=== PATIENT | female | born 1955 | race Caucasian/White ===

== ENCOUNTER 2016-06-30 13:08 | Inpatient (IN) ==
[2016-06-30] MEDS ORDERED: HYDROmorphone 2 MG/1 ML VIAL IV STA ×2 (14:17→20:00)
[2016-06-30] MEDS ORDERED: SODIUM CHLORIDE 0.9% 2,000 ML IV STA (14:17)
[2016-06-30] MEDS ORDERED: ONDANSETRON 4 MG/2 ML VIAL IV STA (14:17)
--- NOTE | 2016-06-30 14:25 | Emergency Department Note ---
Nixon Gupta Gwan, am scribing for, and in the presence of, Charles Franco MD 14:22 . Joan Gupta James D, MD, personally performed the services described in this documentation, ascribed by Elizabeth Alicea in my presence, and it is both accurate and complete 424 . Arrival - Arrival ED Nursing Triage Note: Pt c/o abd pain with right sided pain under her ribs that radiates through to her back x 2 wks. With nausea, urinary frequency, and dark colored urine. Mode of Arrival: Ambulatory Limitations: No Limitations Source: Patient, Old Records Reviewed, RN Notes Reviewed - History of Present Illness Onset (ago): week(s) Consistency: constant Severity: moderate <Charles Franco - Last Filed: 06/30/16 15:36> <Jas Michaud - Last Filed: 06/30/16 17:13> - Arrival Chief Complaint: Abdominal / Flank Pain Stated Complaint: diverticulitis, stomach pain Time Seen by Provider: 06/30/16 14:04 - History of Present Illness HPI Narrative: Pt is a 61 y/o female, with a hx of diverticulitis and pancreatitiis, who presents to the ED with a c/o right sided abd pain that radiates to her lower back with an onset 2 weeks ago. Her associated sxs have been vomiting, nausea, urine frequency and dark color/slug looking BM. Patient continue to note that it hurts when she eats. Patient confirmed that her PCP is Dr. Krause and that she last was seen in office yesterday. (Elizabeth Alicea) Pt is a 61 y/o female, with a hx of diverticulitis and pancreatitiis, who presents to the ED with a c/o right sided abd pain that radiates to her lower back with an onset 2 weeks ago. Her associated sxs have been vomiting, nausea, urine frequency and dark color/slug looking BM. Patient continue to note that it hurts when she eats. Patient confirmed that her PCP is Dr. Krause and that she last was seen in office yesterday. (Charles Franco) Allergies/Adverse Reactions: Allergies Allergy/AdvReac Type Severity Reaction Status Date / Time cimetidine [From Tagamet] Allergy Intermediate Diarrhea Verified 05/13/16 14:49 Home Medications: Home Medications Medication Instructions Recorded Confirmed Type Clorazepate [Tranxene] 3.75 mg PO TID 03/07/15 05/14/16 History Nebivolol [Bystolic] 5 mg PO DAILY 03/07/15 05/14/16 History Albuterol Sulfate [Ventolin HFA] 2 puff INH Q6H PRN 05/14/16 05/14/16 History Atorvastatin [Lipitor] 20 mg PO BID 05/14/16 05/14/16 History Budesonide/Formoterol 160-4.5 2 puffs INH Q6HR PRN 05/14/16 05/14/16 History [Symbicort 160-4.5] Calcium (Carb)/Vit D 600-400 1 tablet PO BEDTIME 05/14/16 05/14/16 History [Caltrate 600 + D] Cetirizine Tab [ZyrTEC Tab] 10 mg PO DAILY 05/14/16 05/14/16 History Clopidogrel [Plavix] 75 mg PO DAILY 05/14/16 05/14/16 History Furosemide Tab [Lasix Tab] 20 mg PO DAILY PRN 05/14/16 05/14/16 History Isosorbide Mononitrate [Imdur] 60 mg PO DAILY 05/14/16 05/14/16 History Lansoprazole [Prevacid] 30 mg PO DAILY 05/14/16 05/14/16 History Linaclotide [Linzess] 145 mcg PO DAILY 05/14/16 05/14/16 History Magnesium Sulfate 300 mg PO BEDTIME 05/14/16 05/14/16 History Meloxicam [Mobic] 7.5 mg PO DAILY PRN 05/14/16 05/14/16 History Nitroglycerin [Nitroglycerin SL 1 tablet SL DIRECTED PRN 05/14/16 05/14/16 History Tab] Polyethylene Glycol Powder 17 gm PO DAILY PRN 05/14/16 05/14/16 History [Miralax] Pregabalin [Lyrica] 75 mg PO TID 05/14/16 05/14/16 History Sertraline [Zoloft] 50 mg PO DAILY 05/14/16 05/14/16 History metFORMIN [Glucophage] 500 mg PO DAILY W/BREAKFAST 05/14/16 05/14/16 History Acetaminophen Tab [Tylenol Tab] 325 mg PO Q4H PRN #0 tablet 05/15/16 Rx Aspirin Tab 325 mg PO DAILY tablet 05/15/16 Rx Fenofibrate [Tricor] 160 mg PO DAILY #30 tablet 05/15/16 Rx Multivitamin (Centrum) [Centrum 1 tablet PO DAILY tablet 05/15/16 Rx Tab] Cyclobenzaprine [Flexeril] 10 mg PO BID 06/30/16 06/30/16 History HYDROcodone/ACETAMIN 7.5-325 1 tablet PO Q6H PRN 06/30/16 06/30/16 History [Tyronza 7.5-325] Pantoprazole Sodium 40 mg PO BID 06/30/16 06/30/16 History Rosuvastatin Calcium [Rosuvastatin 20 mg PO DAILY 06/30/16 06/30/16 History Calcium] Temazepam [Temazepam] 15 mg PO BEDTIME 06/30/16 06/30/16 History Valsartan [Valsartan] 80 mg PO DAILY 06/30/16 06/30/16 History Review of System - Review of System 12 point system: reviewed and no additional remarkable complaints except as stated - Review of System Constitutional: Absent: chills, fever Head/Ears/Nose/Throat: Absent: earache Respiratory: Absent: cough Gastrointestinal: Present: as per HPI, abdominal pain, nausea, vomiting, diarrhea <Charles Franco - Last Filed: 06/30/16 15:36> Medical,Surgical,& Family Hx - Medical History Cardio: History of: Cardiac Dysrhythmia (palpitations), CAD, Hypertension, CA, PVD, Cardiovascular Problems (Angina pectoris) Psychological: History of: Anxiety Disorders, Depression Neurology: History of: Cerebrovascular Accident, TIA (5 years ago) No history of: Seizures HEENT: History of: Eye Problem (wears glasses), Dental Problems (28 years ago..mouth surgery) Endocrine: History of: Diabetes Mellitus (NIDDM) (diet controlled), Dyslipidemia No history of: Thyroid Disorder Respiratory: History of: COPD, Obstructive Sleep Apnea, Pneumonia Gastrointestinal: History of: Diverticulitis/ Diverticulosis, GERD, Pancreatitis , GI Problems (hiatal hernia and umbilical hernia) Musculoskeletal: History of: Degenerative Disk Disease, Herniated Disk (lower back) No history of: Amputation Hematology: History of: Anemia No history of: Blood Transfusion Reaction Reproductive: History of: Endometriosis Other: History of: Anesthesia Reactions (multiple compaints, choking,) No history of: Cancer - Surgical History Cardiac Surgeries: Sugical HX of: Cardiac Catheterization (4 heart caths), Cardiac Surgery (3 stents placed) HEENT Surgeries: Surgical HX of: Tonsilectomy & Adenoidectomy Abdominal Surgeries: Surgical HX of: Appendectomy, Cholecystectomy, Colonoscopy , EGD Reproductive Surgeries: Surgical HX of;: Hysterectomy Patient denies;: Gynecologic Surgery Orthopedic Surgeries: Surgical HX of;: Orthopedic Surgery (left shoulder surgery , right shoulder) - Family History Family History: Reports;: Family Cancer (mother-melanoma), Family Diabetes (aunt ), Family Heart Disease (father-bypass, defribrillator), Family Hypertension ( mother), Family Stroke (aunt) - Social History Smoking Status: Former smoker <Charles Franco - Last Filed: 06/30/16 15:36> Exam <Charles Franco - Last Filed: 06/30/16 15:36> <Jas Michaud R - Last Filed: 06/30/16 17:13> Physical Examination: GENERAL: This is a white female in no apparent distress. VITAL SIGNS: HEENT: Head is normocephalic and atraumatic. Pupils are equally round and reactive to light. Extraocular movement are intact. Oropharynx is benign with moist mucous membranes. NECK: Neck is soft and supple without tenderness. There are no masses. There is no lymphadenopathy. LUNGS: Lungs are clear to auscultation bilaterally. Chest rises symmetrically. There is no chest wall tenderness. CV: Heart is regular rate and rhythm without murmurs, rubs, or gallops. ABDOMEN: Abdomen is soft, generalized tenderness worse in epigastrium. There are no abnormal masses palpated. There is no organomegaly. Bowel sounds are present and active. SKIN: Skin is warm and dry. No rash. EXTREMITIES: Patient has full range of motion without tenderness. There is no pedal edema. NEUROLOGIC: Awake, alert, and oriented x4. Cranial nerves II through XII are grossly intact. There are no motorsensory deficits. PSYCHIATRIC: Normal affect. Normal mood. (Elizabeth Alicea) GENERAL: This is a white female in no apparent distress. VITAL SIGNS: HEENT: Head is normocephalic and atraumatic. Pupils are equally round and reactive to light. Extraocular movement are intact. Oropharynx is benign with moist mucous membranes. NECK: Neck is soft and supple without tenderness. There are no masses. There is no lymphadenopathy. LUNGS: Lungs are clear to auscultation bilaterally. Chest rises symmetrically. There is no chest wall tenderness. CV: Heart is regular rate and rhythm without murmurs, rubs, or gallops. ABDOMEN: Abdomen is soft, generalized tenderness worse in epigastrium. There are no abnormal masses palpated. There is no organomegaly. Bowel sounds are present and active. SKIN: Skin is warm and dry. No rash. EXTREMITIES: Patient has full range of motion without tenderness. There is no pedal edema. NEUROLOGIC: Awake, alert, and oriented x4. Cranial nerves II through XII are grossly intact. There are no motorsensory deficits. PSYCHIATRIC: Normal affect. Normal mood. (Charles Franco) Vital Signs: Vital Signs Temperature 97.5 F L 06/30/16 17:09 Pulse Rate 107 H 06/30/16 17:09 Respiratory Rate 18 06/30/16 17:09 Blood Pressure 129/84 06/30/16 17:09 O2 Sat by Pulse Oximetry 97 06/30/16 13:14 Course <Charles Franco - Last Filed: 06/30/16 15:36> - Consultations Time: 17:11 <Jas Michaud - Last Filed: 06/30/16 17:13> - Consultations Consultation #1: Hospitalist will admit patient (Jas Michaud) Results - Labs CBC & BMP: 06/30/16 14:19 06/30/16 14:19 Lab Results: I have reviewed the patients labs - Diagnostic Findings Procedure: Abdominal x-ray: image reviewed by me, Chest x-ray: image reviewed by me, CT Abdomen and Pelvis: image reviewed by me <Charles Franco - Last Filed: 06/30/16 15:36> - Labs CBC & BMP: 06/30/16 14:19 06/30/16 14:19 <Jas Michaud - Last Filed: 06/30/16 17:13> - Labs Labs: Laboratory Tests 06/30/16 14:19 Troponin I < 0.015 Lipase 146.0 (Charles Franco) Disposition <Charles Franco - Last Filed: 06/30/16 15:36> Case discussed with: patient Time of Disposition: 17:12 <Jas Michaud - Last Filed: 06/30/16 17:13> Clinical Impression: Abdominal pain, Diverticulitis, Abdominal pain Disposition: Still a Patient Condition: Stable
[2016-06-30 14:46] LABS: Basophils # 0.1 10*3/uL (0.0-0.2); Basophils % 0.7 % (0.0-0.8); Eosinophils # 0.2 10*3/uL (0.0-0.87); Eosinophils % 1.8 % (0.00-10.9); Hematocrit 35.3 VOL% (35.7-47.0); Hemoglobin 12.3 GM/DL (12.0-16.0); Immature Granulocytes % 0.2 %; Immature Granulocytes Absolute 0.02 #; Lymphocytes # 2.1 10*3/uL (1.4-4.0); Lymphocytes % 22.7 % (21.3-54.2); Mean Corpuscular HGB Conc 34.8 GM/DL (32-36); Mean Corpuscular Hemoglobin 31 PG (27-34); Mean Corpuscular Volume 88.3 FL (87-102); Mean Platelet Volume 10.4 FL (9.6-12.0); Monocytes # 0.6 10*3/uL (0.11-0.8); Monocytes % 6.7 % (1.7-12.7); Neutrophils # 6.3 10*3/uL (1.4-7.4); Neutrophils % 67.9 % (38.7-73.9); Platelet Count 175 T/CUMM (130-400); Red Cell Distribution Width 12.3 % (9.3-17.3); White Blood Count 9.3 T/CUMM (4-12)
[2016-06-30] MEDS ORDERED: HYDROmorphone 2 MG/1 ML VIAL ONE (15:23)
[2016-06-30] MEDS ORDERED: ONDANSETRON 4 MG/2 ML VIAL ONE (15:23)
[2016-06-30 15:24] LABS: Alanine Aminotransferase 51 U/L (13-56); Albumin 3.6 G/DL (3.4-5.0); Alkaline Phosphatase 51 U/L (45-117); Aspartate Amino Transferase 27 U/L (0-37); Blood Urea Nitrogen 6 MG/DL (7-18); Calcium 8.9 MG/DL (8.5-10.1); Glucose 181 MG/DL (74-106); Magnesium 2.1 MG/DL (1.8-2.4); Osmolality,Calculated 279.5 MOS/KG (273-304); Potassium 3.6 MMOL/L (3.5-5.1); Sodium 139 MMOL/L (136-145); Total Protein 7.5 G/DL (6.4-8.3); Troponin I Only < 0.015 NG/ML (0.00-0.045)
--- NOTE | 2016-06-30 15:57 | CT Report ---
CT abdomen pelvis w con Indication: Abdominal and pelvic pain. CT ABDOMEN AND PELVIS WITH CONTRAST DLP: 1079 mGy*cm. One or more of the following dose reduction techniques was used: Automated exposure control, adjustment of the mA and/or kV according the patient size, or use of iterative reconstruction techniques. Comparison: 10/23/2015 Technique: Axial CT images of the abdomen and pelvis were obtained with IV contrast; Omnipaque 350, 100 cc. Oral contrast was not administered. Abdomen: Calcified atheromatous disease of the aorta and coronary arteries noted. No aneurysmal change shown. Bibasilar atelectasis. Fatty infiltration of the liver is present. Cholecystectomy clips. Spleen, pancreas, adrenal glands and kidneys are within normal limits. No bowel obstruction. Focal inflammation of the hepatic flexure of the colon is present with moderate diverticulosis in the vicinity. Pelvis: Appendix not identified, but no right lower quadrant summation. Diverticulosis rectosigmoid colon is moderately severe. No inflammation, free fluid, free air or lymphadenopathy. Urinary bladder is modestly distended. Uterus is absent. Significant arthritis at L5-S1 with bilateral pars defects of L5 noted. Impression: 1. Diverticulitis of the hepatic flexure. No diverticular abscess or evidence of perforation. Additional diverticulosis of the remainder colon. 2. L5-S1 degenerative disc disease with bilateral pars defects at L5. 3. Calcified atheromatous disease. 4. Fatty infiltration of the liver. Status post cholecystectomy and hysterectomy. PROCEDURE INTERPRETED AT [facility] DEPARTMENT OF RADIOLOGY Final Report Signed by: Kd Joe M.D.
--- NOTE | 2016-06-30 16:02 | XRay Report ---
XR abdomen 2V Indication: Abdominal pain. Abdomen 3 views: Cholecystectomy clips are unchanged when compared to 11/12/2013. IV contrast is present in the bladder from earlier CT. Bowel gas pattern is unremarkable. Phleboliths are distributed throughout the pelvis. Impression: Unremarkable bowel gas pattern. PROCEDURE INTERPRETED AT [facility] DEPARTMENT OF RADIOLOGY Final Report Signed by: Kd Joe M.D.
--- NOTE | 2016-06-30 16:02 | XRay Report ---
Exam: XR chest 1V portable Date: 06/30/2016 2:17 PM Indication: Abdominal pain Comparison: 05/13/2016 Technical: AP portable Findings: The heart is normal in size. The lungs are clear. The mediastinum is intact. Previous cerclage wire over the distal left clavicle. Previous cervical fusion with titanium plate and intervertebral disc struts. Mild scarring in the perihilar regions. Impression: 1. No acute cardiothoracic pathology 2. Previous surgical changes in the neck and left shoulder with arthritic changes at the AC joints bilaterally PROCEDURE INTERPRETED AT [facility] DEPARTMENT OF RADIOLOGY Final Report Signed by: Dr. Akhil Eisenberg
[2016-06-30 16:23] LABS: Apearance,Urine CLEAR (Clear); Bilirubin,Urine Negative (Negative); Blood, Urine Negative (Negative); Glucose,Urine (UA) Negative (Negative); Ketones,Urine Negative (Negative); Nitrite,Urine Negative (Negative); Protein,Urine Negative; Urine Color Straw (Yellow); Urine Specific Gravity 1.014 (1.001-1.035); Urine Urobilinogen < 2.0 EU/DL (0.2-1.0); WBC,Urine 1 /HPF (0-6)
[2016-06-30] MEDS ORDERED: metroNIDAZOLE INJ 500 MG in PREMIX 1 EACH IV STA (17:12)
[2016-06-30] MEDS ORDERED: CIPROFLOXACIN INJ 400 MG in PREMIX 1 EACH IV STA (17:12)
[2016-06-30] MEDS ORDERED: CIPROFLOXACIN 400 MG/200 ML PREMIX IV ONE (17:32)
--- NOTE | 2016-06-30 18:37 | Hospitalist History & Physical ---
Assessment and Plan (1) Diverticulitis Status: Acute Assessment and plan: Admit to med surg. Consult GI. IVF ordered. Pain medication prn. IV antibiotics (Cipro and Flagyl). Labs ordered in am. Current Visit: Yes (2) Abdominal pain Status: Acute Assessment and plan: Pain medication ordered. Pain secondary to diverticulitis. Will treat diverticulitis. Current Visit: Yes (3) Diabetes mellitus Status: Chronic Assessment and plan: Accuchecks ACHS. SSI ordered if necessary. Hemoglobin A1C ordered in am. Current Visit: No (4) GERD (gastroesophageal reflux disease) Status: Chronic Assessment and plan: PPI ordered Current Visit: No (5) Hyperlipidemia Status: Chronic Assessment and plan: Lipid panel in am. Current Visit: No (6) Hypertension Status: Chronic Assessment and plan: Pt. stable presently. Will restart home meds. Current Visit: No Qualifiers: History of Present Illness Chief complaint: abdominal pain History of present illness: Ms. Roberts is a 61 year old female with past medical history of diverticulitis , ulcers, pancreatitis, colitis, htn, dm, hyperlipidemia, and migrane headaches. She presents to the ED today with complaints of diffuse abdominal pain. She states "my stomach hurts all over". Pt. reports that she has a "long history of diverticulitis" and that over the last 2 weeks it has worsened. Pt. states she was out running errands today and became sweaty, dizzy, and hot. Pt. was seen in the clinic yesterday by Dr. Khan but states she didn't receive any medication. The patient denies any fever or chills, but complains of nausea and vomiting. Pt also complains of urinary frequency and dark colored BM. Patient reports a weight loss of 10 lbs due to decrease in appetite and it hurting when she eats. She admits to taking several medications OTC for relief. Pt. will be admitted to the hospitalist service. Home Medications Medication Instructions Recorded Confirmed Type Clorazepate [Tranxene] 7.5 mg PO BEDTIME 03/07/15 06/30/16 History Nebivolol [Bystolic] 5 mg PO DAILY 03/07/15 06/30/16 History Albuterol Sulfate [Ventolin HFA] 2 puff INH Q6H PRN 05/14/16 06/30/16 History Budesonide/Formoterol 160-4.5 2 puffs INH Q6HR PRN 05/14/16 06/30/16 History [Symbicort 160-4.5] Clopidogrel [Plavix] 75 mg PO PC LUNCH 05/14/16 06/30/16 History Furosemide Tab [Lasix Tab] 20 mg PO DAILY PRN 05/14/16 06/30/16 History Linaclotide [Linzess] 145 mcg PO DAILY 05/14/16 06/30/16 History Nitroglycerin [Nitroglycerin SL 1 tablet SL DIRECTED PRN 05/14/16 06/30/16 History Tab] Polyethylene Glycol Powder 17 gm PO DAILY PRN 05/14/16 06/30/16 History [Miralax] Pregabalin [Lyrica] 75 mg PO BID 05/14/16 06/30/16 History Sertraline [Zoloft] 50 mg PO BEDTIME 05/14/16 06/30/16 History metFORMIN [Glucophage] 500 mg PO DAILY W/BREAKFAST 05/14/16 06/30/16 History Fenofibrate [Tricor] 160 mg PO DAILY #30 tablet 05/15/16 06/30/16 Rx Clorazepate [Tranxene] 3.75 mg PO DAILY PRN 06/30/16 06/30/16 History Cyclobenzaprine [Flexeril] 10 mg PO BID PRN 06/30/16 06/30/16 History Lansoprazole 15 mg PO BID 06/30/16 06/30/16 History [place]-3 Fatty Acids [Fish Oil] 300 mg PO DAILY 06/30/16 06/30/16 History Ondansetron HCl 8 mg PO Q4H 06/30/16 06/30/16 History Pantoprazole Sodium 40 mg PO BID 06/30/16 06/30/16 History Rosuvastatin Calcium [Rosuvastatin 20 mg PO QPM 06/30/16 06/30/16 History Calcium] Temazepam [Temazepam] 15 mg PO BEDTIME 06/30/16 06/30/16 History Valsartan [Valsartan] 80 mg PO QPM 06/30/16 06/30/16 History Allergies Allergy/AdvReac Type Severity Reaction Status Date / Time cimetidine [From [facility]] Allergy Intermediate Diarrhea Verified 05/13/16 14:49 Medical,Surgical,& Family Hx - Medical History Cardio: History of: Cardiac Dysrhythmia (palpitations), CAD, Hypertension, MA, PVD, Cardiovascular Problems (Angina pectoris) Psychological: History of: Anxiety Disorders, Depression Neurology: History of: Cerebrovascular Accident, TIA (5 years ago) No history of: Seizures HEENT: History of: Eye Problem (wears glasses), Dental Problems (28 years ago..mouth surgery) Endocrine: History of: Diabetes Mellitus (NIDDM) (diet controlled), Dyslipidemia No history of: Thyroid Disorder Respiratory: History of: COPD, Obstructive Sleep Apnea, Pneumonia Gastrointestinal: History of: Diverticulitis/ Diverticulosis, GERD, Pancreatitis , GI Problems (hiatal hernia and umbilical hernia) Musculoskeletal: History of: Degenerative Disk Disease, Herniated Disk (lower back) No history of: Amputation Hematology: History of: Anemia No history of: Blood Transfusion Reaction Reproductive: History of: Endometriosis Other: History of: Anesthesia Reactions (multiple compaints, choking,) No history of: Cancer - Surgical History Cardiac Surgeries: Sugical HX of: Cardiac Catheterization (4 heart caths), Cardiac Surgery (3 stents placed) HEENT Surgeries: Surgical HX of: Tonsilectomy & Adenoidectomy Abdominal Surgeries: Surgical HX of: Appendectomy, Cholecystectomy, Colonoscopy , EGD Reproductive Surgeries: Surgical HX of;: Hysterectomy Patient denies;: Gynecologic Surgery Orthopedic Surgeries: Surgical HX of;: Orthopedic Surgery (left shoulder surgery , right shoulder) - Family History Family History: Reports;: Family Cancer (mother-melanoma), Family Diabetes (aunt ), Family Heart Disease (father-bypass, defribrillator), Family Hypertension ( mother), Family Stroke (aunt) - Social History Smoking Status: Former smoker - Constitutional Constitutional: Present: excessive sweating, weight loss (10 lb in 2 weeks). Absent: fever(s), weakness - EENT Eyes: Absent: loss of vision Ears: Absent: decreased hearing Nose, mouth and throat: Present: headache(s). Absent: sore throat - Cardiovascular Cardiovascular: Present: dyspnea on exertion (not presently but pt reports intermittent dysnpea on exertion) - Gastrointestinal Gastrointestinal: Present: constipation, cramping, diarrhea, nausea, vomiting - Genitourinary Genitourinary: Present: dysuria, urinary frequency - Musculoskeletal Musculoskeletal: Absent: muscle cramps, muscle weakness - Neurological Neurological: Present: dizziness. Absent: confusion - Psychiatric Psychiatric: Absent: confusion Exam - Constitutional Vitals: Period Temp Pulse Resp BP Sys/North Pulse Ox Last 24 Hr 97.5 F-97.5 F 107-107 18-18 129-129/84-84 97 General appearance: no acute distress, over weight - Head Head exam: Present: normal inspection, normocephalic - Eye Eye exam: Present: EOMI. Absent: scleral icterus Pupils: Present: JUANPABLO - Neck Neck exam: Present: normal inspection - Respiratory Respiratory exam: Present: clear to auscultation bilaterally. Absent: wheezes - Cardiovascular Cardiovascular exam: Present: regular rate and rhythm - GI/Abdominal GI/Abdominal exam: Present: normal bowel sounds, tenderness (diffuse abdominal pain), soft - Extremities Exam Extremities exam: Present: normal inspection, normal capillary refill, full ROM. Absent: edema - Neurological Exam Neurological exam: Present: alert, oriented X3, normal gait - Psychiatric Psychiatric exam: Present: normal affect, normal mood, depressed - Skin Skin exam: Present: normal color, warm, dry Results - Labs CBC & BMP: 06/30/16 14:19 06/30/16 14:19 Lab Results: I have reviewed the past 24 hour labs - Diagnostic Findings Procedure: Chest x-ray: report reviewed by me (no acute pathology), CT Abdomen and Pelvis: report reviewed by me (diverticulitis noted.)
[2016-06-30] MEDS ORDERED: metroNIDAZOLE 500 MG/100 ML PREMIX IV ONE ×2 (19:05→19:15)
[2016-06-30] MEDS ORDERED: CYCLOBENZAPRINE 10 MG TABLET PO PRN (20:00)
[2016-06-30] MEDS ORDERED: ACETAMINOPHEN 325 MG TABLET PO PRN (20:00)
[2016-06-30] MEDS ORDERED: GLUCAGON 1 MG VIAL IM PRN (20:00)
[2016-06-30] MEDS ORDERED: DOCUSATE SODIUM 100 MG CAPSULE PO PRN (20:00)
[2016-06-30] MEDS ORDERED: CLORAZEPATE 3.75 MG TABLET PO PRN (20:00)
[2016-06-30] MEDS ORDERED: BUDESONIDE/FORMOTEROL 160-4.5 INHALER 6 GM INH PRN (20:00)
[2016-06-30] MEDS ORDERED: ONDANSETRON 4 MG/2 ML VIAL IV PRN (20:00)
[2016-06-30] MEDS ORDERED: DEXTROSE 50% 25 GM/50 ML VIAL IV PRN (20:00)
[2016-06-30] MEDS ORDERED: ONDANSETRON 4 MG TABLET PO PRN (20:00)
[2016-06-30] MEDS ORDERED: ALBUTEROL 2.5 MG/3 ML NEB RESP TX PRN (20:30)
[2016-06-30] MEDS: CLORAZEPATE 3.75 MG TABLET PO SCH (21:34)
[2016-06-30] MEDS: PANTOPRAZOLE 40 MG TABLET PO SCH (21:34)
[2016-06-30] MEDS: PREGABALIN 75 MG CAPSULE PO SCH (21:34)
[2016-06-30] MEDS: TEMAZEPAM 15 MG CAPSULE PO SCH (21:35)
[2016-06-30] MEDS: ROSUVASTATIN 20 MG TABLET PO SCH (21:35)
[2016-06-30] MEDS: VALSARTAN 80 MG TABLET PO SCH (21:35)
[2016-06-30] MEDS: SODIUM CHLORIDE 0.9% 1,000 ML IV SCH (21:35)
[2016-06-30] MEDS: SERTRALINE 50 MG TABLET PO SCH (21:35)
[2016-06-30] MEDS: ENOXAPARIN 40 MG/0.4 ML SYRINGE SUBCUT SCH (21:36)
[2016-06-30] MEDS: HYDROmorphone 2 MG/1 ML VIAL IV PRN (21:37)
[2016-07-01] MEDS: metroNIDAZOLE INJ 500 MG in PREMIX 1 EACH IV SCH ×4 (00:29→21:37)
[2016-07-01 06:07] LABS: Basophils # 0.1 10*3/uL (0.0-0.2); Eosinophils # 0.2 10*3/uL (0.0-0.87); Eosinophils % 2.6 % (0.00-10.9); Hematocrit 36.6 VOL% (35.7-47.0); Hemoglobin 11.9 GM/DL (12.0-16.0); Immature Granulocytes % 0.6 %; Immature Granulocytes Absolute 0.04 #; Lymphocytes # 2.1 10*3/uL (1.4-4.0); Lymphocytes % 29.4 % (21.3-54.2); Mean Corpuscular HGB Conc 32.5 GM/DL (32-36); Mean Corpuscular Hemoglobin 30 PG (27-34); Mean Corpuscular Volume 93.4 FL (87-102); Mean Platelet Volume 10.3 FL (9.6-12.0); Monocytes # 0.7 10*3/uL (0.11-0.8); Monocytes % 9.3 % (1.7-12.7); Neutrophils % 57.1 % (38.7-73.9); Platelet Count 168 T/CUMM (130-400); Red Blood Count 3.92 MC/CUMM (3.8-5.5); Red Cell Distribution Width 12.9 % (9.3-17.3)
[2016-07-01 06:49] LABS: Calcium 8.2 MG/DL (8.5-10.1)
[2016-07-01 06:50] LABS: Osmolality,Calculated 284.8 MOS/KG (273-304); Potassium 4.5 MMOL/L (3.5-5.1); Risk Ratio 5.41; Thyroid Stimulating Hormone 1.21 uIU/ml (0.358-3.74); VLDL CHOLESTEROL 77.8 MG/DL
[2016-07-01] MEDS: CIPROFLOXACIN INJ 400 MG in PREMIX 1 EACH IV SCH ×2 (06:59→18:21)
--- NOTE | 2016-07-01 07:40 | Hospitalist Progress Note ---
Assessment and Plan (1) Diabetes mellitus Status: Chronic Assessment and plan: Mild however associated with lipid disorder with remote episode of pancreatitis. Currently on statin, fibrate, and metformin. Current Visit: No Qualifiers: Diabetes mellitus type: type 2 (2) Diverticulitis Status: Acute Assessment and plan: Multiple recurrent episodes of active diverticulitis. Current Visit: Yes Qualifiers: Diverticulitis site: large intestine Diverticulitis bleeding: without bleeding Diverticulitis complication: without perforation or abscess Qualified Code(s): K57.32 - Diverticulitis of large intestine without perforation or abscess without bleeding (3) Coronary artery disease Status: Chronic Assessment and plan: Previous coronary artery stenting with repeat cardiac catheterization April 2016 showing stable coronary anatomy and preserved LV function. Current Visit: No Hospitalist: Subjective Interval history: 61-year-old female remote episode of acute pancreatitis associated with hypertriglyceridemia with chronic diverticular disease with recurrent episodes of diverticulitis presents with a predominant right upper quadrant and epigastric discomfort with liquid nonbloody bowel movements. She was admitted after a CT scan of the abdomen demonstrated active diverticulitis with involvement of the hepatic flexure. Incidental note of fatty liver infiltrate was also described. She has had stable vital signs since admission she has been afebrile. She has had no bowel movements. She continues this morning to have a predominantly right upper quadrant and epigastric discomfort in her abdomen. Patient has known coronary artery disease with previous percutaneous interventions. She had a repeat catheterization performed in April. At that time she was found to have a chronic total occlusion of the right coronary artery with patent left anterior descending coronary artery stents and normal LV function. She has chronic shortness of breath with negative for pulmonary workup completed prior to her cardiac catheterization, at that time she also had a negative CT angiogram of the chest. Exam - Constitutional Vitals: Period Temp Pulse Resp BP Sys/North Pulse Ox Last 24 Hr 97.7 F-98.3 F 78-85 18-20 102-123/58-82 93-97 General appearance: over weight - Respiratory Respiratory exam: Present: clear to auscultation bilaterally. Absent: rales, rhonchi, wheezes - Cardiovascular Cardiovascular exam: Present: regular rate and rhythm - GI/Abdominal GI/Abdominal exam: Present: hypoactive bowel sounds, tenderness (Right upper quadrant predominantly). Absent: distended - Extremities Exam Extremities exam: Absent: edema - Neurological Exam Neurological exam: Present: alert, oriented X3 Results - Labs CBC & BMP: 07/01/16 05:44 07/01/16 05:44 Labs: Triglycerides 389 Cholesterol 211 TSH 1.21
--- NOTE | 2016-07-01 08:47 | Gastrointestinal Consult Note ---
Assessment and Plan (1) Diverticulitis large intestine w/o perforation or abscess w/o bleeding Status: Acute Assessment and plan: This patient has a CT scan that demonstrates hepatic flexure (?) appearance of diverticulitis. I wonder if this may be some localized ischemia versus infectious colitis since the patient has never had diverticulosis in this area on colonoscopy done but previously by Dr. Burt. Unfortunately no stool cultures were taken prior to initiation of antibiotics and these will likely reduce her ability to capture an organism. The antibiotics will treat both an underlying infectious colitis as well as diverticulitis. We will continue to observe on these antibiotics. I am not sure that much more needs to be done at this point from a GI standpoint other than agree with current medications and plan. Patient has been concerned that she might be having another episode of her pancreatitis and this is been ruled out. She is currently on Cipro and Flagyl. Current Visit: Yes (2) History of pancreatitis Status: Acute Assessment and plan: This is been essentially ruled out at this point. Patient's amylase and lipase are normal as of the office visit done on 06/29/16. White blood cell count at that time was normal as well interestingly. Patient has an IBS type pattern and is shifted from constipation predominant diarrhea predominant stools. This may be with the tenriism of a colitis, in retrospect. Current Visit: Yes (3) Dysphagia Status: Acute Assessment and plan: The patient has been seen on 03/07/15 demonstrating no evidence of stricturing but the patient was dilated to 57 [place] by single pass Savary dilator with a 1 cm hiatal hernia a small amount of retained fluid in the patient's stomach. There was moderate erythema noted of the gastric folds that were biopsied and found to have gastritis that was negative for Helicobacter pylori. She does not have dysphagia at this time does not need redilation. She does have mild reflux symptoms with nausea and vomiting. I will make sure that she is on pantoprazole twice daily while she is here, initially IV. Current Visit: Yes History of Present Illness Chief complaint: Right upper quadrant pain, recurrent diverticulitis History of present illness: Ms. Roberts is a 61 year old female who has been seen by myself in clinic as recently as 06/29/16 and also previously by Dr. Vargas in the past as well as Dr. Burt more recently. She had a colonoscopy done by Dr. Burt as recently as 2/13/12 which demonstrated left-sided diverticulosis and internal hemorrhoids. She previously EGD done as well on 01/29/14 demonstrating esophageal stricturing secondary to GE reflux that was treated with dilation 54 [place] dilation with good results. The patient has had another episode when I first seen her in clinic on 02/04/15 of diverticulitis documented by CT scan and has had recurrent episodes of diverticulitis in the past usually involving the left lower abdomen where her diverticulosis was noted on colonoscopy. When she saw me she was having diffuse pain in her left lower abdomen but also in her right upper abdomen and right lower abdomen as well that was rather diffuse. Asked her to schedule CT scan to look for diverticulitis and obtained a set of pancreatic enzyme testing with amylase and lipase being normal on 06/29/16 and white blood cell count being fairly normal at that time at 7.9. Hematocrit and hemoglobin were 39.2 and 13.6 respectively. She had BUN and creatinine done which showed that she was able to undergo contrast study. The patient was informed of these results. Her pain though progressed and became 10 out of 10 in the right upper quadrant and CT scan done by Dr. Joe seems to show diverticulitis in this region with localized swelling although her white count is only mildly elevated now at 9.3 but this has come back down to 7.0 with antibiotics and the pain has dissipated from a 10 out of 10 down to a 4 out of 10 (after pain medications). She has not yet reached the threshold where I would normally call in surgery and interestingly her area of involvement is shifted from her left lower abdomen to her hepatic flexure. The patient does have chronic pain and does take Percocet and Point upon occasion, she felt mildly constipated recently and although she was having up to 6 bowel movements a day decided to take some milk of magnesia which he states did help out with the pain probably from decreasing the the total amount of stool in her colon. She states that she has been having fevers and chills at home. Please see my note from [facility] [place]/16. Home Medications Medication Instructions Recorded Confirmed Type Clorazepate [Tranxene] 7.5 mg PO BEDTIME 03/07/15 06/30/16 History Nebivolol [Bystolic] 5 mg PO DAILY 03/07/15 06/30/16 History Albuterol Sulfate [Ventolin HFA] 2 puff INH Q6H PRN 05/14/16 06/30/16 History Budesonide/Formoterol 160-4.5 2 puffs INH Q6HR PRN 05/14/16 06/30/16 History [Symbicort 160-4.5] Clopidogrel [Plavix] 75 mg PO PC LUNCH 05/14/16 06/30/16 History Furosemide Tab [Lasix Tab] 20 mg PO DAILY PRN 05/14/16 06/30/16 History Linaclotide [Linzess] 145 mcg PO DAILY 05/14/16 06/30/16 History Nitroglycerin [Nitroglycerin SL 1 tablet SL DIRECTED PRN 05/14/16 06/30/16 History Tab] Polyethylene Glycol Powder 17 gm PO DAILY PRN 05/14/16 06/30/16 History [Miralax] Pregabalin [Lyrica] 75 mg PO BID 05/14/16 06/30/16 History Sertraline [Zoloft] 50 mg PO BEDTIME 05/14/16 06/30/16 History metFORMIN [Glucophage] 500 mg PO DAILY W/BREAKFAST 05/14/16 06/30/16 History Fenofibrate [Tricor] 160 mg PO DAILY #30 tablet 05/15/16 06/30/16 Rx Clorazepate [Tranxene] 3.75 mg PO DAILY PRN 06/30/16 06/30/16 History Cyclobenzaprine [Flexeril] 10 mg PO BID PRN 06/30/16 06/30/16 History Lansoprazole 15 mg PO BID 06/30/16 06/30/16 History [facility]-3 Fatty Acids [Fish Oil] 300 mg PO DAILY 06/30/16 06/30/16 History Ondansetron HCl 8 mg PO Q4H 06/30/16 06/30/16 History Pantoprazole Sodium 40 mg PO BID 06/30/16 06/30/16 History Rosuvastatin Calcium [Rosuvastatin 20 mg PO QPM 06/30/16 06/30/16 History Calcium] Temazepam [Temazepam] 15 mg PO BEDTIME 06/30/16 06/30/16 History Valsartan [Valsartan] 80 mg PO QPM 06/30/16 06/30/16 History Allergies Allergy/AdvReac Type Severity Reaction Status Date / Time cimetidine [From [facility]] Allergy Intermediate Diarrhea Verified 05/13/16 14:49 Medical,Surgical,& Family Hx - Medical History Cardio: History of: Cardiac Dysrhythmia (palpitations), CAD, Hypertension, VT, PVD, Cardiovascular Problems (Angina pectoris) Psychological: History of: Anxiety Disorders, Depression Neurology: History of: Cerebrovascular Accident, TIA (5 years ago) No history of: Seizures HEENT: History of: Eye Problem (wears glasses), Dental Problems (28 years ago..mouth surgery) Endocrine: History of: Diabetes Mellitus (NIDDM) (diet controlled), Dyslipidemia No history of: Thyroid Disorder Respiratory: History of: COPD, Obstructive Sleep Apnea, Pneumonia Gastrointestinal: History of: Diverticulitis/ Diverticulosis, GERD, Pancreatitis , GI Problems (hiatal hernia and umbilical hernia) Musculoskeletal: History of: Degenerative Disk Disease, Herniated Disk (lower back) No history of: Amputation Hematology: History of: Anemia No history of: Blood Transfusion Reaction Reproductive: History of: Endometriosis Other: History of: Anesthesia Reactions (multiple compaints, choking,) No history of: Cancer - Surgical History Cardiac Surgeries: Sugical HX of: Cardiac Catheterization (4 heart caths), Cardiac Surgery (3 stents placed) HEENT Surgeries: Surgical HX of: Tonsilectomy & Adenoidectomy Abdominal Surgeries: Surgical HX of: Appendectomy, Cholecystectomy, Colonoscopy , EGD Reproductive Surgeries: Surgical HX of;: Hysterectomy Patient denies;: Gynecologic Surgery Orthopedic Surgeries: Surgical HX of;: Orthopedic Surgery (left shoulder surgery , right shoulder) - Family History Family History: Reports;: Family Cancer (mother-melanoma), Family Diabetes (aunt ), Family Heart Disease (father-bypass, defribrillator), Family Hypertension ( mother), Family Stroke (aunt) - Social History Smoking Status: Current some day smoker Frequency of Alcohol Use: None Type of Drug Use: None Review of systems: Constitutional: Patient does have some recent fever, chills, nausea, and vomiting Eyes: Denies dry eyes, and scleral icterus HENT: Denies headaches Cardiovascular: Denies acute chest pain and claudication Respiratory: Denies shortness of breath, wheezing, and difficulty breathing, denies cough Gastrointestinal: As noted in the HPI Genitourinary: Denies dysuria and hematuria Neurologic: Denies vision loss, and loss of sensation Musculoskeletal: She does have some joint swelling, joint stiffness, and muscular weakness Psychiatric: She does have a history of mild depression but no tanya symptoms Heme-Lymph: Denies easy bruising, lymph node enlargement or tenderness, night sweats, excessive bleeding Allergies-immunologic: Denies pruritus and rhinorrhea Exam - Constitutional Vitals: Period Temp Pulse Resp BP Sys/North Pulse Ox Last 24 Hr 97.7 F-98.3 F 78-85 18-20 102-123/58-82 93-97 Exam: Constitutional: Well-developed, well-nourished, alert, and in mild acute distress Head and face: Head: Normocephalic atraumatic Eyes: Conjunctiva without injection, no gross scleral icterus, pupils equal and round bilaterally Ears: Intact to conversation in both ears Nose: External appearance is normal, nares patent Mouth: Oral mucous membranes moist without erythema dentition noted to be without erosion Neck: Normal appearance, no masses or tenderness, trachea midline Thyroid: Gland midline and appropriate size for age Respiratory: Normal respiratory effort, clear to auscultation without wheezes, rhonchi or rales Cardiovascular: Regular rate and rhythm, normal S1, S2, the exam is without rubs, murmurs or gallops. Gastrointestinal: Patient has a good deal of tenderness in the hepatic flexure region but also in the left lower abdomen and less so in the right lower abdomen to moderate palpation, normal active bowel sounds, tone normal without rigidity or guarding, no masses present, no hepatomegaly, no spleen tip felt. Rectal exam obtained, brown stool that is guaiac negative seen on exam, small-moderate internal hemorrhoids noted on palpation. Lymphatic: Neck without adenopathy, axilla without lymphadenopathy present Musculoskeletal: Right and left lower extremities without evidence of edema Skin and subcutaneous tissue: No rashes or ulcerations noted, normal skin turgor, digits and nails without clubbing/cyanosis/deformities. Neurologic: The patient is grossly oriented to person place and time, cranial nerves show tongue movements are normal with normal tongue extrusion midline, light touch sensation is intact. Psychiatric: No hallucinations or delusions are present, does not appear depressed Results - Labs CBC & BMP: 07/01/16 05:44 07/01/16 05:44
[2016-07-01] MEDS ORDERED: PANTOPRAZOLE 40 MG TABLET PO SCH (09:00)
[2016-07-01] MEDS ORDERED: NEBIVOLOL 5 MG TABLET PO SCH (09:00)
[2016-07-01] MEDS: SODIUM CHLORIDE 0.9% 1,000 ML IV SCH ×2 (09:09→18:22)
[2016-07-01] MEDS: FENOFIBRATE 160 MG TABLET PO SCH (09:11)
[2016-07-01] MEDS: PANTOPRAZOLE 40 MG TABLET PO SCH ×2 (09:11→21:38)
[2016-07-01] MEDS: HYDROmorphone 2 MG/1 ML VIAL IV PRN ×2 (09:11→15:48)
[2016-07-01] MEDS: PREGABALIN 75 MG CAPSULE PO SCH ×2 (09:11→21:38)
[2016-07-01] MEDS: OMEGA 3 ACID ETHYL ESTERS 1 GM CAPSULE PO SCH (09:11)
[2016-07-01] MEDS: LINACLOTIDE 145 MCG CAPSULE PO SCH (09:14)
[2016-07-01] MEDS: CLOPIDOGREL 75 MG TABLET PO SCH (12:33)
[2016-07-01] MEDS ORDERED: diphenhydrAMINE CAP 25 MG CAPSULE PO PRN (17:47)
[2016-07-01] MEDS: VALSARTAN 80 MG TABLET PO SCH (18:20)
[2016-07-01] MEDS: ROSUVASTATIN 20 MG TABLET PO SCH (18:20)
[2016-07-01] MEDS: SERTRALINE 50 MG TABLET PO SCH (21:38)
[2016-07-01] MEDS: NEBIVOLOL 5 MG TABLET PO SCH (21:38)
[2016-07-01] MEDS: TEMAZEPAM 15 MG CAPSULE PO SCH (21:38)
[2016-07-01] MEDS: CLORAZEPATE 3.75 MG TABLET PO SCH (21:38)
[2016-07-01] MEDS: ENOXAPARIN 40 MG/0.4 ML SYRINGE SUBCUT SCH (21:41)
[2016-07-02] MEDS: metroNIDAZOLE INJ 500 MG in PREMIX 1 EACH IV SCH ×4 (02:50→23:12)
[2016-07-02] MEDS: CIPROFLOXACIN INJ 400 MG in PREMIX 1 EACH IV SCH ×2 (05:04→20:45)
[2016-07-02] MEDS: SODIUM CHLORIDE 0.9% 1,000 ML IV SCH ×2 (05:04→15:40)
[2016-07-02 05:20] LABS: Basophils # 0.1 10*3/uL (0.0-0.2); Basophils % 0.9 % (0.0-0.8); Eosinophils # 0.2 10*3/uL (0.0-0.87); Eosinophils % 3.5 % (0.00-10.9); Hematocrit 31.6 VOL% (35.7-47.0); Hemoglobin 10.7 GM/DL (12.0-16.0); Immature Granulocytes % 0.7 %; Immature Granulocytes Absolute 0.04 #; Lymphocytes # 2.2 10*3/uL (1.4-4.0); Lymphocytes % 40.4 % (21.3-54.2); Mean Corpuscular HGB Conc 33.9 GM/DL (32-36); Mean Corpuscular Hemoglobin 31 PG (27-34); Mean Corpuscular Volume 91.3 FL (87-102); Mean Platelet Volume 10.4 FL (9.6-12.0); Monocytes # 0.5 10*3/uL (0.11-0.8); Monocytes % 9.7 % (1.7-12.7); Neutrophils # 2.4 10*3/uL (1.4-7.4); Neutrophils % 44.8 % (38.7-73.9); Platelet Count 168 T/CUMM (130-400); Red Blood Count 3.46 MC/CUMM (3.8-5.5); Red Cell Distribution Width 12.7 % (9.3-17.3); White Blood Count 5.4 T/CUMM (4-12)
[2016-07-02 05:49] LABS: Calcium 8.3 MG/DL (8.5-10.1); Osmolality,Calculated 283.8 MOS/KG (273-304); Potassium 4.4 MMOL/L (3.5-5.1)
[2016-07-02] MEDS: FENOFIBRATE 160 MG TABLET PO SCH (09:58)
[2016-07-02] MEDS: OMEGA 3 ACID ETHYL ESTERS 1 GM CAPSULE PO SCH (10:00)
[2016-07-02] MEDS: PREGABALIN 75 MG CAPSULE PO SCH ×2 (10:00→21:29)
[2016-07-02] MEDS: PANTOPRAZOLE 40 MG TABLET PO SCH ×2 (10:01→21:30)
[2016-07-02] MEDS: LINACLOTIDE 145 MCG CAPSULE PO SCH (10:03)
[2016-07-02] MEDS ORDERED: MORPHINE 2 MG/1 ML SYRINGE IV ONE (13:46)
[2016-07-02] MEDS: CLOPIDOGREL 75 MG TABLET PO SCH (14:28)
--- NOTE | 2016-07-02 15:38 | Hospitalist Progress Note ---
Assessment and Plan - Time spent with patient Time spent with patient: Greater than 30 minutes (1) Diverticulitis Problem details: Continue IV cipro and flagyl. Stable. Appreciate Gi assistance. Status: Acute Current Visit: Yes Qualifiers: Diverticulitis site: large intestine Diverticulitis bleeding: without bleeding Diverticulitis complication: without perforation or abscess Qualified Code(s): K57.32 - Diverticulitis of large intestine without perforation or abscess without bleeding (2) Diabetes mellitus Problem details: Continue current medical treatment regimen. Status: Chronic Current Visit: No Qualifiers: Diabetes mellitus type: type 2 (3) Hyperlipidemia Problem details: Continue statin, Fenofibrate and fish oil. Status: Chronic Current Visit: No (4) Coronary artery disease Problem details: Continue current medical treatment regimen. Status: Chronic Current Visit: No (5) Obstructive sleep apnea Status: Chronic Current Visit: No (6) Peripheral vascular disease Status: Chronic Current Visit: No (7) GERD (gastroesophageal reflux disease) Problem details: PPI Status: Chronic Current Visit: No Hospitalist: Subjective Interval history: 07/02/16: No overnight acute event, still has abd pain and states that just oral pain medication does not help to control her pain. Tolerate current diet. Had negative stool C diff today. VSS. Deny fever, cough, SOB, wheezing, chest pain, diarrhea, dysuria, rash or edema. Pt is AAOx3. Per Dr. Noland's note on 07/01/16: 61-year-old female remote episode of acute pancreatitis associated with hypertriglyceridemia with chronic diverticular disease with recurrent episodes of diverticulitis presents with a predominant right upper quadrant and epigastric discomfort with liquid nonbloody bowel movements. She was admitted after a CT scan of the abdomen demonstrated active diverticulitis with involvement of the hepatic flexure. Incidental note of fatty liver infiltrate was also described. She has had stable vital signs since admission she has been afebrile. She has had no bowel movements. She continues this morning to have a predominantly right upper quadrant and epigastric discomfort in her abdomen. Patient has known coronary artery disease with previous percutaneous interventions. She had a repeat catheterization performed in April. At that time she was found to have a chronic total occlusion of the right coronary artery with patent left anterior descending coronary artery stents and normal LV function. She has chronic shortness of breath with negative for pulmonary workup completed prior to her cardiac catheterization, at that time she also had a negative CT angiogram of the chest. Exam - Constitutional Vitals: Period Temp Pulse Resp BP Sys/North Pulse Ox Last 24 Hr 97.7 F-98.9 F 65-84 18-20 101-120/58-72 90-96 Exam: GENERAL: NAD, AAOx3. HEENT: Pupils equally round and reactive to light, conjunctivae clear. TMs ferguson and translucent. Oropharynx pink, with moist mucous membranes. Normal lips, teeth and gums. NECK: Supple without mass. HEART: RRR, no murmur. CHEST: Normal shape, good air movement, no retractions. CV: RRR, no murmurs, 2+ peripheral pulses LUNGS: Clear to auscultation; no rales, rhonchi, or wheezes. ABDOMEN: Soft, slight tenderness, +BS, and no hepatosplenomegaly. SKIN: No rash or edema. NEURO: No gross motor deficits noted. Results - Labs CBC & BMP: 07/02/16 04:36 07/02/16 04:36
[2016-07-02] MEDS: ROSUVASTATIN 20 MG TABLET PO SCH (21:23)
[2016-07-02] MEDS: VALSARTAN 80 MG TABLET PO SCH (21:23)
[2016-07-02] MEDS: NEBIVOLOL 5 MG TABLET PO SCH (21:29)
[2016-07-02] MEDS: TEMAZEPAM 15 MG CAPSULE PO SCH (21:29)
[2016-07-02] MEDS: CLORAZEPATE 3.75 MG TABLET PO SCH (21:29)
[2016-07-02] MEDS: SERTRALINE 50 MG TABLET PO SCH (21:29)
[2016-07-02] MEDS: ENOXAPARIN 40 MG/0.4 ML SYRINGE SUBCUT SCH (21:30)
[2016-07-03] MEDS: HYDROmorphone 2 MG/1 ML VIAL IV PRN (01:26)
[2016-07-03 01:48] LABS: Basophils # 0.1 10*3/uL (0.0-0.2); Basophils % 0.9 % (0.0-0.8); Eosinophils # 0.2 10*3/uL (0.0-0.87); Eosinophils % 3.2 % (0.00-10.9); Hematocrit 31.8 VOL% (35.7-47.0); Hemoglobin 10.9 GM/DL (12.0-16.0); Immature Granulocytes % 0.5 %; Immature Granulocytes Absolute 0.03 #; Lymphocytes # 2.2 10*3/uL (1.4-4.0); Lymphocytes % 37.5 % (21.3-54.2); Mean Corpuscular HGB Conc 34.3 GM/DL (32-36); Mean Corpuscular Hemoglobin 30 PG (27-34); Mean Corpuscular Volume 88.8 FL (87-102); Mean Platelet Volume 10.6 FL (9.6-12.0); Monocytes # 0.6 10*3/uL (0.11-0.8); Monocytes % 10.1 % (1.7-12.7); Neutrophils # 2.8 10*3/uL (1.4-7.4); Neutrophils % 47.8 % (38.7-73.9); Platelet Count 185 T/CUMM (130-400); Red Blood Count 3.58 MC/CUMM (3.8-5.5); Red Cell Distribution Width 12.1 % (9.3-17.3); White Blood Count 5.9 T/CUMM (4-12)
[2016-07-03 02:05] LABS: Calcium 8.6 MG/DL (8.5-10.1); Osmolality,Calculated 284.7 MOS/KG (273-304); Potassium 3.7 MMOL/L (3.5-5.1)
[2016-07-03] MEDS: metroNIDAZOLE INJ 500 MG in PREMIX 1 EACH IV SCH ×4 (04:01→21:25)
[2016-07-03] MEDS: SODIUM CHLORIDE 0.9% 1,000 ML IV SCH ×3 (06:22→18:46)
[2016-07-03] MEDS: CIPROFLOXACIN INJ 400 MG in PREMIX 1 EACH IV SCH ×2 (06:22→18:47)
[2016-07-03] MEDS: LINACLOTIDE 145 MCG CAPSULE PO SCH (09:44)
[2016-07-03] MEDS: PREGABALIN 75 MG CAPSULE PO SCH ×2 (09:44→21:26)
[2016-07-03] MEDS: OMEGA 3 ACID ETHYL ESTERS 1 GM CAPSULE PO SCH (09:44)
[2016-07-03] MEDS: PANTOPRAZOLE 40 MG TABLET PO SCH ×2 (09:45→21:26)
[2016-07-03] MEDS: FENOFIBRATE 160 MG TABLET PO SCH (09:45)
--- NOTE | 2016-07-03 14:43 | Hospitalist Progress Note ---
Assessment and Plan - Time spent with patient Time spent with patient: Greater than 30 minutes (1) Diverticulitis Status: Acute Assessment and plan: Stable. Continue IV cipro and flagyl. Continue pain management. F/u culture results. CBC in am. Appreciate Gi assistance. Current Visit: Yes Qualifiers: Diverticulitis site: large intestine Diverticulitis bleeding: without bleeding Diverticulitis complication: without perforation or abscess Qualified Code(s): K57.32 - Diverticulitis of large intestine without perforation or abscess without bleeding (2) Diabetes mellitus Problem details: Continue current medical treatment regimen. Status: Chronic Current Visit: No Qualifiers: Diabetes mellitus type: type 2 (3) Hyperlipidemia Problem details: Continue statin, Fenofibrate and fish oil. Status: Chronic Current Visit: No (4) Coronary artery disease Problem details: Continue current medical treatment regimen. Status: Chronic Current Visit: No (5) Obstructive sleep apnea Status: Chronic Current Visit: No (6) Peripheral vascular disease Status: Chronic Current Visit: No (7) GERD (gastroesophageal reflux disease) Problem details: PPI Status: Chronic Current Visit: No Hospitalist: Subjective Interval history: 07/03/16: No overnight acute event. Lying in bed. Wants to try full liquid diet. Still has Abd pain due to diverticulitis. On IVF and IV antibitoics. GI f/u. Deny fever, cough, wheezing, chest pain, diarrhea, dysuria, rash or edema. 07/02/16: No overnight acute event, still has abd pain and states that just oral pain medication does not help to control her pain. Tolerate current diet. Had negative stool C diff today. VSS. Deny fever, cough, SOB, wheezing, chest pain, diarrhea, dysuria, rash or edema. Pt is AAOx3. Per Dr. Noland's note on 07/01/16: 61-year-old female remote episode of acute pancreatitis associated with hypertriglyceridemia with chronic diverticular disease with recurrent episodes of diverticulitis presents with a predominant right upper quadrant and epigastric discomfort with liquid nonbloody bowel movements. She was admitted after a CT scan of the abdomen demonstrated active diverticulitis with involvement of the hepatic flexure. Incidental note of fatty liver infiltrate was also described. She has had stable vital signs since admission she has been afebrile. She has had no bowel movements. She continues this morning to have a predominantly right upper quadrant and epigastric discomfort in her abdomen. Patient has known coronary artery disease with previous percutaneous interventions. She had a repeat catheterization performed in April. At that time she was found to have a chronic total occlusion of the right coronary artery with patent left anterior descending coronary artery stents and normal LV function. She has chronic shortness of breath with negative for pulmonary workup completed prior to her cardiac catheterization, at that time she also had a negative CT angiogram of the chest. Exam - Constitutional Vitals: Period Temp Pulse Resp BP Sys/North Pulse Ox Last 24 Hr 96.8 F-99 F 66-76 18-24 97-129/69-87 94-95 Exam: GENERAL: NAD, AAOx3. HEENT: Pupils equally round and reactive to light, conjunctivae clear. TMs ferguson and translucent. Oropharynx pink, with moist mucous membranes. Normal lips, teeth and gums. NECK: Supple without mass. HEART: RRR, no murmur. CHEST: Normal shape, good air movement, no retractions. CV: RRR, no murmurs, 2+ peripheral pulses LUNGS: Clear to auscultation; no rales, rhonchi, or wheezes. ABDOMEN: Soft, slight tenderness at lower abd area, +BS, and no hepatosplenomegaly. SKIN: No rash or edema. NEURO: No gross motor deficits noted. Results - Labs CBC & BMP: 07/03/16 00:29 07/03/16 00:29
[2016-07-03] MEDS: CLOPIDOGREL 75 MG TABLET PO SCH (15:11)
[2016-07-03] MEDS: NEBIVOLOL 5 MG TABLET PO SCH (21:25)
[2016-07-03] MEDS: CLORAZEPATE 3.75 MG TABLET PO SCH (21:26)
[2016-07-03] MEDS: ENOXAPARIN 40 MG/0.4 ML SYRINGE SUBCUT SCH (21:26)
[2016-07-03] MEDS: TEMAZEPAM 15 MG CAPSULE PO SCH (21:26)
[2016-07-03] MEDS: SERTRALINE 50 MG TABLET PO SCH (21:27)
[2016-07-03] MEDS: ROSUVASTATIN 20 MG TABLET PO SCH (21:44)
[2016-07-03] MEDS: VALSARTAN 80 MG TABLET PO SCH (21:47)
[2016-07-04] MEDS: metroNIDAZOLE INJ 500 MG in PREMIX 1 EACH IV SCH ×4 (03:32→21:15)
[2016-07-04] MEDS: CIPROFLOXACIN INJ 400 MG in PREMIX 1 EACH IV SCH ×2 (05:48→17:56)
[2016-07-04 06:19] LABS: Basophils % 0.9 % (0.0-0.8); Eosinophils # 0.2 10*3/uL (0.0-0.87); Eosinophils % 4.3 % (0.00-10.9); Hematocrit 32.9 VOL% (35.7-47.0); Hemoglobin 11.2 GM/DL (12.0-16.0); Immature Granulocytes % 0.9 %; Immature Granulocytes Absolute 0.04 #; Lymphocytes # 1.9 10*3/uL (1.4-4.0); Lymphocytes % 41.3 % (21.3-54.2); Mean Corpuscular Hemoglobin 30 PG (27-34); Mean Corpuscular Volume 89.4 FL (87-102); Monocytes # 0.4 10*3/uL (0.11-0.8); Neutrophils # 2.1 10*3/uL (1.4-7.4); Neutrophils % 44.6 % (38.7-73.9); Platelet Count 180 T/CUMM (130-400); Red Blood Count 3.68 MC/CUMM (3.8-5.5); Red Cell Distribution Width 12.3 % (9.3-17.3); White Blood Count 4.6 T/CUMM (4-12)
[2016-07-04 06:43] LABS: Calcium 8.1 MG/DL (8.5-10.1); Osmolality,Calculated 286.6 MOS/KG (273-304); Potassium 3.8 MMOL/L (3.5-5.1)
[2016-07-04] MEDS ORDERED: KETOROLAC 30 MG/1 ML VIAL IV PRN (10:34)
[2016-07-04] MEDS ORDERED: traMADol 50 MG TABLET PO PRN (10:34)
[2016-07-04] MEDS: SODIUM CHLORIDE 0.9% 1,000 ML IV SCH (10:34)
[2016-07-04] MEDS: LINACLOTIDE 145 MCG CAPSULE PO SCH (10:36)
[2016-07-04] MEDS: FENOFIBRATE 160 MG TABLET PO SCH (10:37)
[2016-07-04] MEDS: OMEGA 3 ACID ETHYL ESTERS 1 GM CAPSULE PO SCH (10:37)
[2016-07-04] MEDS: PREGABALIN 75 MG CAPSULE PO SCH ×2 (10:37→21:16)
--- NOTE | 2016-07-04 10:37 | Hospitalist Progress Note ---
Assessment and Plan (1) Diverticulitis large intestine w/o perforation or abscess w/o bleeding Status: Acute Assessment and plan: Continue IV Flagyl and Cipro. Continue IV fluids. Patient tolerating full liquid diet. Followed by gastroenterology Dr. Khan. Consider surgical evaluation for recurrent diverticulitis. Current Visit: Yes (2) Hypertension Status: Chronic Current Visit: No Qualifiers: Hypertension type: essential hypertension (3) Diabetes mellitus Problem details: Continue current medical treatment regimen. Status: Chronic Current Visit: No Qualifiers: Diabetes mellitus type: type 2 (4) Coronary artery disease Problem details: Continue current medical treatment regimen. Status: Chronic Current Visit: No (5) GERD (gastroesophageal reflux disease) Problem details: PPI Status: Chronic Current Visit: No (6) Abdominal pain Status: Acute Current Visit: Yes Qualifiers: Abdominal location: left lower quadrant Qualified Code(s): R10.32 - Left lower quadrant pain Hospitalist: Subjective Interval history: Patient seen and examined. She reports continued abdominal pain. She has a history of recurrent diverticulitis and states this is her fourth bout this year and she had 8 episodes last year. She is followed by Dr. Khan. She requests a change in her pain medications. Exam - Constitutional Vitals: Period Temp Pulse Resp BP Sys/North Pulse Ox Last 24 Hr 97.7 F-98.2 F 61-73 15-22 97-128/64-85 93-96 Exam: Constitutional System: Mild distress. No tremulousness. Head: Normocephalic, atraumatic. Ears, Nose and Throat System: No pain or tenderness. No epistaxis or discharge Eyes System: Pupils equal, round, and reactive. Extraocular muscles intact. Neck: Supple, without adenopathy, No jugular venous distention. No thyromegaly, neck mass, or prior surgery apparent. Respiratory System: Chest clear to auscultation. Cardiovascular System: Heart with regular rate and rhythm. No murmur. GI System: Abdomen soft, left lower quadrant tenderness to palpation . Normo active bowel sounds present. Musculoskeletal System: limbs with no pedal edema. Full distal pulses. Neurological System: No discernable sensory deficit. No aphasia Psychiatric System: Conversation is rational Results - Labs CBC & BMP: 07/04/16 06:04 07/04/16 06:04 Lab Results: I have reviewed the past 24 hour labs
[2016-07-04] MEDS: PANTOPRAZOLE 40 MG TABLET PO SCH ×2 (10:38→21:17)
[2016-07-04] MEDS ORDERED: VALSARTAN 80 MG TABLET PO SCH (13:00)
[2016-07-04] MEDS: CLOPIDOGREL 75 MG TABLET PO SCH (15:56)
[2016-07-04] MEDS: ROSUVASTATIN 20 MG TABLET PO SCH (18:21)
[2016-07-04] MEDS: ENOXAPARIN 40 MG/0.4 ML SYRINGE SUBCUT SCH (21:16)
[2016-07-04] MEDS: NEBIVOLOL 5 MG TABLET PO SCH (21:16)
[2016-07-04] MEDS: CLORAZEPATE 3.75 MG TABLET PO SCH (21:16)
[2016-07-04] MEDS: SERTRALINE 50 MG TABLET PO SCH (21:16)
[2016-07-04] MEDS: LACTATED RINGERS 1,000 ML IV SCH (21:17)
[2016-07-04] MEDS: TEMAZEPAM 15 MG CAPSULE PO SCH (21:17)
[2016-07-04] MEDS: MORPHINE 2 MG/1 ML SYRINGE IV PRN (21:56)
[2016-07-05] MEDS: metroNIDAZOLE INJ 500 MG in PREMIX 1 EACH IV SCH ×4 (02:49→22:02)
[2016-07-05] MEDS: MORPHINE 2 MG/1 ML SYRINGE IV PRN ×2 (02:50→09:37)
[2016-07-05] MEDS: CIPROFLOXACIN INJ 400 MG in PREMIX 1 EACH IV SCH ×2 (06:54→18:06)
[2016-07-05] MEDS: VALSARTAN 80 MG TABLET PO SCH (09:36)
[2016-07-05] MEDS: PANTOPRAZOLE 40 MG TABLET PO SCH ×2 (09:36→22:01)
[2016-07-05] MEDS: PREGABALIN 75 MG CAPSULE PO SCH ×2 (09:36→22:01)
[2016-07-05] MEDS: FENOFIBRATE 160 MG TABLET PO SCH (09:36)
[2016-07-05] MEDS: OMEGA 3 ACID ETHYL ESTERS 1 GM CAPSULE PO SCH (09:36)
[2016-07-05] MEDS: LINACLOTIDE 145 MCG CAPSULE PO SCH (09:38)
--- NOTE | 2016-07-05 11:46 | Gastrointestinal Progress Note ---
Assessment and Plan (1) Diverticulitis Status: Acute Assessment and plan: 07/05-abdominal pain improved from onset. Afebrile. Tolerating full liquid diet. Advance to soft diet continue to monitor. Plan an addendum to follow by Dr. Lopez. Dr. Khan to resume care tomorrow. Current Visit: Yes Qualifiers: Diverticulitis site: large intestine Diverticulitis bleeding: without bleeding Diverticulitis complication: without perforation or abscess Qualified Code(s): K57.32 - Diverticulitis of large intestine without perforation or abscess without bleeding Gastroenterology - PN: Subj Interval history: CC: Diverticulitis Patient is seen awake and alert sitting up in bed. States she is having some continued lower normal pain but it is improved from onset. Denies any nausea, vomiting, diarrhea. She is afebrile at present time. She is tolerating full liquid diet without difficulty. Abdomen is soft, mild tenderness to lower quadrants. She is tolerating her IV antibiotics at present time. ROS: Denies shortness of breath or chest pain Exam (Progress Note) - Constitutional Vitals: Period Temp Pulse Resp BP Sys/North Pulse Ox Last 24 Hr 96.6 F-99.0 F 65-78 18-22 114-138/72-84 93-97 General appearance: normal weight, no acute distress - Head Head exam: Present: normal inspection, normocephalic - Eye Eye exam: Present: other (Lids and conjunctive on). Absent: scleral icterus - ENT ENT exam: Present: normal exam, normal oropharynx - Neck Neck exam: Present: normal inspection - Respiratory Respiratory exam: Present: clear to auscultation bilaterally. Absent: rales, rhonchi, wheezes - Cardiovascular Cardiovascular exam: Present: regular rate and rhythm. Absent: diastolic murmur , JVD, systolic murmur - GI/Abdominal GI/Abdominal exam: Present: normal bowel sounds, tenderness, soft. Absent: ascites, distended, mass, organomegaly - Extremities Exam Extremities exam: Present: normal inspection, full ROM - Back Exam Back exam: Present: normal inspection - Neurological Exam Neurological exam: Present: alert, oriented X3 - Psychiatric Psychiatric exam: Present: normal affect, normal mood - Skin Skin exam: Present: normal color, warm, dry Results - Labs CBC & BMP: 07/04/16 06:04 07/04/16 06:04 Lab Results: I have reviewed the past 24 hour labs
[2016-07-05] MEDS: CLOPIDOGREL 75 MG TABLET PO SCH (14:08)
[2016-07-05] MEDS: LACTATED RINGERS 1,000 ML IV SCH (14:12)
--- NOTE | 2016-07-05 16:41 | Hospitalist Progress Note ---
Assessment and Plan (1) Abdominal pain Status: Acute Assessment and plan: The patient continues on the antibiotics, hydration, and we have begun to receive. We will continue to apply the recommendations of the central office operator supervisor. Current Visit: Yes Qualifiers: Abdominal location: left lower quadrant Qualified Code(s): R10.32 - Left lower quadrant pain (2) Diverticulitis Status: Acute Current Visit: Yes Qualifiers: Diverticulitis site: large intestine Diverticulitis bleeding: without bleeding Diverticulitis complication: without perforation or abscess Qualified Code(s): K57.32 - Diverticulitis of large intestine without perforation or abscess without bleeding Hospitalist: Subjective Interval history: This is a patient who was admitted to the hospital with left greater than right lower quadrant discomfort. The patient is thought to have diverticulitis and is being treated with Cipro and Flagyl. The patient states that she has had some improvement although she continues to have crampy discomfort. The patient does not have fever. Exam - Constitutional Vitals: Period Temp Pulse Resp BP Sys/North Pulse Ox Last 24 Hr 96.6 F-99.0 F 65-78 18-22 95-138/61-84 95-97 General appearance: mild distress - Respiratory Respiratory exam: Present: clear to auscultation bilaterally - Cardiovascular Cardiovascular exam: Present: regular rate and rhythm - GI/Abdominal GI/Abdominal exam: Present: normal bowel sounds, soft Results - Labs CBC & BMP: 07/04/16 06:04 07/04/16 06:04 Lab Results: I have reviewed the past 24 hour labs
[2016-07-05] MEDS: ROSUVASTATIN 20 MG TABLET PO SCH (18:06)
[2016-07-05] MEDS: CLORAZEPATE 3.75 MG TABLET PO SCH (22:01)
[2016-07-05] MEDS: SERTRALINE 50 MG TABLET PO SCH (22:01)
[2016-07-05] MEDS: NEBIVOLOL 5 MG TABLET PO SCH (22:01)
[2016-07-05] MEDS: TEMAZEPAM 15 MG CAPSULE PO SCH (22:01)
[2016-07-05] MEDS: ENOXAPARIN 40 MG/0.4 ML SYRINGE SUBCUT SCH (22:02)
[2016-07-06] MEDS: metroNIDAZOLE INJ 500 MG in PREMIX 1 EACH IV SCH ×2 (03:51→09:33)
[2016-07-06] MEDS: CIPROFLOXACIN INJ 400 MG in PREMIX 1 EACH IV SCH (07:24)
[2016-07-06] MEDS: VALSARTAN 80 MG TABLET PO SCH (08:23)
[2016-07-06] MEDS: FENOFIBRATE 160 MG TABLET PO SCH (08:24)
[2016-07-06] MEDS: LINACLOTIDE 145 MCG CAPSULE PO SCH (08:24)
[2016-07-06] MEDS: OMEGA 3 ACID ETHYL ESTERS 1 GM CAPSULE PO SCH (08:24)
[2016-07-06] MEDS: PREGABALIN 75 MG CAPSULE PO SCH (08:24)
[2016-07-06] MEDS: PANTOPRAZOLE 40 MG TABLET PO SCH (08:24)
[2016-07-06] MEDS: LACTATED RINGERS 1,000 ML IV SCH (08:28)
--- NOTE | 2016-07-06 11:01 | Hospitalist Progress Note ---
Assessment and Plan (1) Abdominal pain Status: Acute Assessment and plan: The patient is improving. She seems ready to transition to oral antibiotics and oral pain medications. I anticipate she will be ready for discharge home soon. Dr. Khan will be able to see her today. Current Visit: Yes Qualifiers: Abdominal location: left lower quadrant Qualified Code(s): R10.32 - Left lower quadrant pain (2) Diverticulitis Status: Acute Current Visit: Yes Qualifiers: Diverticulitis site: large intestine Diverticulitis bleeding: without bleeding Diverticulitis complication: without perforation or abscess Qualified Code(s): K57.32 - Diverticulitis of large intestine without perforation or abscess without bleeding Hospitalist: Subjective Interval history: The patient has less discomfort today. She is able to tolerate food. The patient does not complain of shortness of breath or chest pain. Exam - Constitutional Vitals: Period Temp Pulse Resp BP Sys/North Pulse Ox Last 24 Hr 97.6 F-98.6 F 56-81 18-20 95-127/61-83 93-97 General appearance: no acute distress, over weight - Respiratory Respiratory exam: Present: clear to auscultation bilaterally - Cardiovascular Cardiovascular exam: Present: regular rate and rhythm - GI/Abdominal GI/Abdominal exam: Present: normal bowel sounds - Neurological Exam Neurological exam: Present: alert Results - Labs CBC & BMP: 07/04/16 06:04 07/04/16 06:04 Lab Results: I have reviewed the past 24 hour labs
[2016-07-06 12:35] VITALS: BP 126/77
[2016-07-06] MEDS: CLOPIDOGREL 75 MG TABLET PO SCH (13:05)
--- NOTE | 2016-07-06 14:48 | Gastrointestinal Progress Note ---
Assessment and Plan (1) Diverticulitis large intestine w/o perforation or abscess w/o bleeding Status: Acute Assessment and plan: This patient has a CT scan that demonstrates hepatic flexure (?) appearance of diverticulitis. I wonder if this may be some localized ischemia versus infectious colitis since the patient has never had diverticulosis in this area on colonoscopy done but previously by Dr. Burt. Unfortunately no stool cultures were taken prior to initiation of antibiotics and these will likely reduce her ability to capture an organism. The antibiotics will treat both an underlying infectious colitis as well as diverticulitis. We will continue to observe on these antibiotics. I am not sure that much more needs to be done at this point from a GI standpoint other than agree with current medications and plan. Patient has been concerned that she might be having another episode of her pancreatitis and this is been ruled out. She is currently on Cipro and Flagyl. 07/06/16--Patient is doing fairly well after being treated with antibiotics for the last 4 days. She has been eating solids and her pain is down to a 0 out of 10 in intensity. She can be watched another day in house in order to see if she tolerates the oral antibiotics or discharged to home at this time she prefers. I would not consider doing surgery on this patient until she has not colonoscopy to examine for diverticuli and to look for evidence of colitis in the right colon. It is unusual that the patient might develop diverticulitis on the right side of the colon, especially when she has had all of her previous episodes on the left side of the colon. I have written her a prescription for 4 days worth of Cipro 500 mg twice daily and Flagyl 500 mg 3 times daily. She can follow-up with me in the clinic in 6-8 weeks. Current Visit: Yes (2) History of pancreatitis Status: Acute Assessment and plan: This is been essentially ruled out at this point. Patient's amylase and lipase are normal as of the office visit done on 06/29/16. White blood cell count at that time was normal as well interestingly. Patient has an IBS type pattern and is shifted from constipation predominant diarrhea predominant stools. This may be with the roman catholic of a colitis, in retrospect. 07/06/16--there was no gross evidence of amylase or lipase increase on her initial laboratories. She does not have any evidence of pancreatitis on CT scanning. We can recheck this if she develops pain similar to her pancreatitis in the future. At this point her symptoms have dissipated entirely. Current Visit: Yes (3) Dysphagia Status: Acute Assessment and plan: The patient has been seen on 03/07/15 demonstrating no evidence of stricturing but the patient was dilated to 57 Hungarian by single pass Savary dilator with a 1 cm hiatal hernia a small amount of retained fluid in the patient's stomach. There was moderate erythema noted of the gastric folds that were biopsied and found to have gastritis that was negative for Helicobacter pylori. She does not have dysphagia at this time does not need redilation. She does have mild reflux symptoms with nausea and vomiting. I will make sure that she is on pantoprazole twice daily while she is here, initially IV. 07/06/16--the patient is doing well from the dysphagia standpoint. Her reflux is under control. She is ready to go home at this time. We can consider redilation in the future as needed. Current Visit: Yes Gastroenterology - PN: Subj Interval history: The patient appears to be doing quite well today with her pain down to a 0 out of 10 in intensity, she is eating well solids today with salad for dinner last night. She has not gotten any morphine or other strong pain relievers since 9 AM yesterday yesterday morning from my discussions with the nursing staff--she is safe for discharge in my opinion. I would make sure that she gets oral medication with the scripts that I have written for the next 4 days. Exam (Progress Note) - Constitutional Vitals: Period Temp Pulse Resp BP Sys/North Pulse Ox Last 24 Hr 97.6 F-98.6 F 56-81 18-20 95-127/61-83 93-98 General appearance: no acute distress - Head Head exam: Present: normocephalic, atraumatic - Eye Eye exam: Present: EOMI - Neck Neck exam: Present: normal inspection - Respiratory Respiratory exam: Present: clear to auscultation bilaterally - Cardiovascular Cardiovascular exam: Present: regular rate and rhythm - GI/Abdominal GI/Abdominal exam: Present: normal bowel sounds, soft. Absent: distended, guarding, tenderness, rebound - Neurological Exam Neurological exam: Present: alert, oriented X3, CN II-XII intact. Absent: motor sensory deficit - Psychiatric Psychiatric exam: Present: normal affect, normal mood - Skin Skin exam: Present: warm Results - Labs CBC & BMP: 07/04/16 06:04 07/04/16 06:04
[2016-07-06] MEDS ORDERED: metroNIDAZOLE 500 MG TABLET PO SCH (15:00)
--- NOTE | 2016-07-06 15:08 | Discharge Summary ---
Hospital Course - Hospital Course Hospital Course: The patient was admitted to hospital with abdominal pain in the left lower quadrant and left upper quadrant with pain also in the right the patient's CT scan revealed diverticulitis. The patient was treated with IV antibiotics and IV hydration. She had GI consultation. The patient improved over 4 days. Of time and may transition to oral antibiotics and diet was restarted. Dr. Khan recommended discharge home on Cipro and Flagyl and follow up with him in the office. On the date of discharge, the abdomen is soft and there is some residual discomfort in the left lower quadrant. [id number] discharge time 35 minutes - Time spent with patient Time with patient DS: Greater than 30 minutes Diagnosis - Discharge Diagnosis (1) Abdominal pain Status: Resolved (2) Diverticulitis Status: Acute Specialty Discharge - Follow Up or Referrals Follow up with: John Khan MD [Physician] - Discharge Plan - Discharge Data Disposition: Disch To Home/Self Care Condition at Discharge: Stable Discharge Diet: advance to your usual diet Activity: resume usual activities as tolerated - Discharge Medications New Ciprofloxacin Tab [Cipro Tab] 500 mg PO BID #10 tablet metroNIDAZOLE TAB [Flagyl Cap/Tab] 250 mg PO TID #14 tablet Continue Clorazepate [Tranxene] 7.5 mg PO BEDTIME Nebivolol [Bystolic] 5 mg PO DAILY Polyethylene Glycol Powder [Miralax] 17 gm PO DAILY PRN PRN Reason: Constipation Albuterol Sulfate [Ventolin HFA] 2 puff INH Q6H PRN PRN Reason: Shortness Of Breath/Wheezing Furosemide Tab [Lasix Tab] 20 mg PO DAILY PRN PRN Reason: Edema Clopidogrel [Plavix] 75 mg PO PC LUNCH Linaclotide [Linzess] 145 mcg PO DAILY Sertraline [Zoloft] 50 mg PO BEDTIME Nitroglycerin [Nitroglycerin SL Tab] 1 tablet SL DIRECTED PRN PRN Reason: Chest Pain Pantoprazole Sodium 40 mg PO BID Valsartan 80 mg PO QPM Rosuvastatin Calcium 20 mg PO QPM Temazepam 15 mg PO BEDTIME Cyclobenzaprine [Flexeril] 10 mg PO BID PRN PRN Reason: MUSCLE SPASMS Lansoprazole 15 mg PO BID Budesonide/Formoterol 160-4.5 [Symbicort 160-4.5] 2 puffs INH Q6HR PRN PRN Reason: Shortness Of Breath/Wheezing metFORMIN [Glucophage] 500 mg PO DAILY W/BREAKFAST Pregabalin [Lyrica] 75 mg PO BID Fenofibrate [Tricor] 160 mg PO DAILY #30 tablet Clorazepate [Tranxene] 3.75 mg PO DAILY PRN PRN Reason: Anxiety Ondansetron HCl 8 mg PO Q4H Alma-3 Fatty Acids [Fish Oil] 300 mg PO DAILY - Follow Up or Referral Follow Up: John Khan MD [Physician] - 1 Month - Forms/Instructions Exam - Constitutional Vitals: Period Temp Pulse Resp BP Sys/North Pulse Ox Last 24 Hr 97.6 F-98.6 F 56-81 18-20 95-127/61-83 93-98 Discharge Results Procedures and tests throughout hospitalization: Pending Orders 07/02/16 Occult Blood, Stool Stat 07/07/16 04:00 CBC [Comp Blood Count Auto Diff] IN AM Labs on day of discharge: Labs from last 24 hours 07/06/16 07/06/16 07/05/16 10:26 07:45 18:46 POC Glucose 182 H 136 H 155 H 07/05/16 15:14 POC Glucose 154 H DS: Provider Date of admission: 06/30/16 17:10 Primary care physician: . No PCP Attending physician on admission: Lucian Noland MD Consults: 06/30/16 20:00 Consult to Physician [CONS] Routine Comment: patient known to you Consulting Provider: John Khan Consult to Specialist Group: Gastroenterology 06/30/16 20:13 Consult to Pharmacy [CONS] Routine Reason for Pharmacy Consult: Adjust Meds Renal Funct 06/30/16 20:30 Consult to Dietitian [CONS] Routine Reason for Dietitian: Diet Recommendations Discharging clinician: Daniel Sal MD
[2016-07-06] MEDS ORDERED: CIPROFLOXACIN 500 MG TABLET PO SCH (21:00)
== END 2016-07-06 16:01 | disposition home or self-care (01) | DRG 392 ==
LOC: N.ED 13:08 → SUATTDRO 17:10 → N.EDINP 17:10 → N.2E 19:48
PROVIDERS: ADMIT Internal Medicine Cardiovascular Disease; ATTEND Internal Medicine

== ENCOUNTER 2016-12-18 15:51 | Observation (INO) ==
--- NOTE | 2016-12-18 17:08 | Emergency Department Note ---
Arrival - Arrival Chief Complaint: Neuro Stated Complaint: Possible min stroke? ED Nursing Triage Note: PT C/O APPROX 15 MIN EPISODE OF BLURRED VISION. PT STATES IF SHE TURNS HER HEAD FROM SIDE TO SIDE HER VISION DOES NOT FOCUS EASILY. PT HAD ABSCESSED TOOTH DRAINED LAST WEEK. Mode of Arrival: Ambulatory Limitations: No Limitations Source: Patient, RN Notes Reviewed Time Seen by Provider: 12/18/16 16:47 - History of Present Illness HPI Narrative: The patient complains of sudden onset of dizziness, nausea, confusion and visual changes sometime after 3:00 today. She says her vision is still a little blurry but overall she is much better at this time. She denies any focal weakness. She reports no speech difficulty, however, she was alone when this episode occurred and not speaking to anyone. When she tried to call her daughter she says she could not figure out how to dial the number and could not remember the number. The patient does have a history of TIA and CVA in the past. She has been treated several times over the past 2 months for tooth abscess. She currently has some purulent drainage from a left lower molar tooth abscess. Allergies/Adverse Reactions: Allergies Allergy/AdvReac Type Severity Reaction Status Date / Time cimetidine [From Tagamet] Allergy Intermediate Diarrhea Verified 12/18/16 16:09 Home Medications: Home Medications Medication Instructions Recorded Confirmed Type Nebivolol [Bystolic] 5 mg PO BEDTIME 03/07/15 12/18/16 History Clopidogrel [Plavix] 75 mg PO BEDTIME 05/14/16 12/18/16 History Furosemide Tab [Lasix Tab] 20 mg PO DAILY PRN 05/14/16 12/18/16 History Linaclotide [Linzess] 145 mcg PO AC BREAKFAST 05/14/16 12/18/16 History Sertraline [Zoloft] 50 mg PO BEDTIME 05/14/16 12/18/16 History Clorazepate [Tranxene] 3.75 mg PO TID PRN 06/30/16 12/18/16 History Cyclobenzaprine [Flexeril] 10 mg PO BID PRN 06/30/16 12/18/16 History Pantoprazole Sodium 40 mg PO BIDAC 06/30/16 12/18/16 History Temazepam [Restoril] 15 mg PO BEDTIME PRN 10/04/16 12/18/16 History Valsartan [Diovan] 80 mg PO BID 10/04/16 12/18/16 History Fenofibrate 54 mg PO BEDTIME 10/05/16 12/18/16 History Atorvastatin [Lipitor] 40 mg PO BEDTIME 10/06/16 12/18/16 History Potassium 99 mg PO QAM 10/06/16 12/18/16 History Calcium (Carb)/Vit D 600-400 1 tablet PO BEDTIME 11/25/16 12/18/16 History [Caltrate 600 + D] Nitroglycerin Sl Tab [Nitrostat] 0.4 mg SL Q5M PRN 11/25/16 12/18/16 History Ondansetron HCl [Ondansetron HCl] 8 mg PO Q8H PRN 11/25/16 12/18/16 History Dicyclomine Cap/Tab [Bentyl 10 mg PO BID 12/18/16 12/18/16 History Cap/Tab] Grulla 3 Acid Ethyl Esters [Lovaza] 2 gm PO BID 12/18/16 12/18/16 History Review of System - Review of System 12 point system: reviewed and no additional remarkable complaints except as stated - Review of System Constitutional: Absent: fever, weakness Eyes: Present: vision change Head/Ears/Nose/Throat: Absent: nasal drainage, sore throat Respiratory: Absent: cough Gastrointestinal: Present: nausea. Absent: vomiting Neurological: Present: confusion, vertigo. Absent: numbness, paresthesias Medical,Surgical,& Family Hx - Medical History Cardio: History of: Cardiac Dysrhythmia (palpitations), CAD, Hypertension, NE, PVD, Cardiovascular Problems (Angina pectoris) Psychological: History of: Anxiety Disorders, Depression Neurology: History of: Cerebrovascular Accident, TIA (5 years ago) HEENT: History of: Eye Problem (wears glasses), Dental Problems (28 years ago..mouth surgery) Endocrine: History of: Diabetes Mellitus (NIDDM) (diet controlled), Dyslipidemia Respiratory: History of: COPD, Obstructive Sleep Apnea, Pneumonia Gastrointestinal: History of: Diverticulitis/ Diverticulosis, GERD, Pancreatitis , GI Problems (hiatal hernia and umbilical hernia) Musculoskeletal: History of: Degenerative Disk Disease, Herniated Disk (lower back) Hematology: History of: Anemia Reproductive: History of: Endometriosis Other: History of: Anesthesia Reactions (multiple compaints, choking,) - Surgical History Cardiac Surgeries: Sugical HX of: Cardiac Catheterization (4 heart caths), Cardiac Surgery (3 stents placed) HEENT Surgeries: Surgical HX of: Tonsilectomy & Adenoidectomy Abdominal Surgeries: Surgical HX of: Appendectomy, Cholecystectomy, Colonoscopy , EGD Reproductive Surgeries: Surgical HX of;: Hysterectomy Orthopedic Surgeries: Surgical HX of;: Orthopedic Surgery (left shoulder surgery , right shoulder,disc in neck) - Family History Family History: Reports;: Family Cancer (mother-melanoma), Family Diabetes (aunt ), Family Heart Disease (father-bypass, defribrillator), Family Hypertension ( mother), Family Stroke (aunt) - Social History Smoking Status: Current every day smoker Frequency of Alcohol Use: None Type of Drug Use: None Exam Physical Examination: GENERAL: Alert. No acute distress. HEENT: Normocephalic and atraumatic. There is no temporal artery tenderness or pain on percussion of sinuses. No TMJ tenderness or click. PERRL, EOM intact, no angle closure, discs sharp bilaterally. No diplopia. No visual field cut. There is no nasal discharge. No pharyngeal erythema or exudate. There is tenderness of the left lower rear molar with adjacent gum swelling and a small ulcer. No active drainage at this time. NECK: Normal inspection. Supple. No lymphadenopathy or meningismus. LUNGS: No respiratory distress. Clear to auscultation bilaterally, no wheezes, rales or rhonchi. HEART: Regular rate and rhythm. SKIN: Color normal. Warm and dry. EXTREMITIES: Nontender. Normal range of motion. NEUROLOGICAL/PSYCHIATRIC: Alert and oriented -4. Normal speech. Normal mood and affect. Cranial nerves II through X are intact. Sensory and motor exams are normal. Reflexes are normal. There is no pronator drift. Finger to nose is normal bilaterally. Vital Signs: Vital Signs Temperature 97.5 F L 12/18/16 16:33 Pulse Rate 67 12/18/16 18:15 Respiratory Rate 20 12/18/16 18:15 Blood Pressure 117/76 12/18/16 18:15 O2 Sat by Pulse Oximetry 94 L 12/18/16 18:15 Course - Reevaluation(s) Reevaluation #1: The patient feels better but does not feel completely back to normal. She states she has a headache and her right eye "still feels funny." She cannot really describe this any further. CT shows no abnormality in the remainder of the workup is negative. Given patient's history of a questionable CVA in the past, this may be a TIA. I will discuss patient with the hospitalist service to admit. Time: 19:23 Reevaluation #2: Patient was discussed with the hospitalist service who will see her and admit. Time: 19:48 Results - Labs CBC & BMP: 12/18/16 17:27 12/18/16 17:27 Lab Results: I have reviewed the patients labs Labs: Laboratory Tests 12/18/16 12/18/16 12/18/16 17:01 17:27 17:45 INR 1.0 Urine RBC <1 Urine WBC <1 U Benzodiazepines Scrn Positive H - Impressions EKG shows a normal sinus rhythm at 71 with a nonspecific T-wave abnormality. CT head shows no abnormality. Disposition Clinical Impression: Transient cerebral ischemia Case discussed with: patient, patient's family Disposition: Still a Patient Condition: Stable Time of Disposition: 19:26
--- NOTE | 2016-12-18 17:29 | CT Report ---
CT brain Indication: Confusion, visual changes Comparison: None available Technique: Axial CT imaging of the brain is performed without contrast with 3 mm increments. Findings: No evidence of hemorrhage, mass mass effect midline shift or acute infarct seen. The brain parenchyma attenuation and differentiation appears within normal limits. The ventricles and cisterns are normal in caliber. No cranial or skull base abnormality is identified. Impression: No evidence of abnormality demonstrated. This CT exam was performed using one or more the following dose reduction techniques: Automated exposure control, adjustment of the MA and/or KV according to patient size, or use of iterative reconstruction technique. PROCEDURE INTERPRETED AT [facility] DEPARTMENT OF RADIOLOGY Final Report Signed by: Dr. Aden Cuenca
--- NOTE | 2016-12-18 17:32 | DUMMY REPORT TO COMPLETE ORDER ---
See report scanned to EMR
[2016-12-18 17:52] LABS: Basophils # 0.1 10*3/uL (0.0-0.2); Basophils % 1.2 % (0.0-0.8); Eosinophils # 0.8 10*3/uL (0.0-0.87); Eosinophils % 9.6 % (0.00-10.9); Hematocrit 39.3 VOL% (35.7-47.0); Hemoglobin 14.3 GM/DL (12.0-16.0); Immature Granulocytes % 1.3 %; Immature Granulocytes Absolute 0.11 #; Lymphocytes # 2.6 10*3/uL (1.4-4.0); Lymphocytes % 30.8 % (21.3-54.2); Mean Corpuscular HGB Conc 36.4 GM/DL (32-36); Mean Corpuscular Hemoglobin 32 PG (27-34); Mean Corpuscular Volume 87.3 FL (87-102); Mean Platelet Volume 9.7 FL (9.6-12.0); Monocytes # 0.7 10*3/uL (0.11-0.8); Monocytes % 7.9 % (1.7-12.7); Neutrophils # 4.1 10*3/uL (1.4-7.4); Neutrophils % 49.2 % (38.7-73.9); Platelet Count 229 T/CUMM (130-400); Red Cell Distribution Width 12.4 % (9.3-17.3); White Blood Count 8.3 T/CUMM (4-12)
[2016-12-18 17:58] LABS: Apearance,Urine CLEAR (Clear); Bilirubin,Urine Negative (Negative); Blood, Urine Negative (Negative); Glucose,Urine (UA) Negative (Negative); Ketones,Urine Negative (Negative); Nitrite,Urine Negative (Negative); Protein,Urine Negative; RBC,Urine <1 /HPF (0-4); Squamous Epithelial Cell,Urine Occasional /HPF (0-10); Urine Color Yellow (Yellow); Urine Specific Gravity 1.002 (1.001-1.035); Urine Urobilinogen < 2.0 EU/DL (0.2-1.0); WBC,Urine <1 /HPF (0-6)
[2016-12-18 18:03] LABS: PT Patient Result 10.8 SECS; Partial Thromboplastin Time 27.4 SECS (0-40)
[2016-12-18 18:16] LABS: Calcium 9.9 MG/DL (8.5-10.1); Magnesium 2.2 MG/DL (1.8-2.4); Osmolality,Calculated 273.7 MOS/KG (273-304)
[2016-12-18 18:25] LABS: Barbiturates Screen,Urine Negative (Negative); Benzodiazepines Screen,Urine Positive (Negative); Cannabinoid Screen,Urine Negative (Negative); Opiate Screen,Urine Negative (Negative); Phencyclidine Screen,Urine Negative (Negative)
[2016-12-18] MEDS ORDERED: GLUCAGON 1 MG VIAL IM PRN (20:37)
[2016-12-18] MEDS ORDERED: traZODone 50 MG TABLET PO PRN (20:37)
[2016-12-18] MEDS ORDERED: ACETAMINOPHEN 325 MG TABLET PO PRN (20:37)
[2016-12-18] MEDS ORDERED: ONDANSETRON 4 MG/2 ML VIAL IV PRN (20:37)
[2016-12-18] MEDS ORDERED: DEXTROSE 50% 25 GM/50 ML SYRINGE IV PRN (20:37)
[2016-12-18] MEDS ORDERED: FUROSEMIDE 20 MG TABLET PO PRN (20:41)
[2016-12-18] MEDS ORDERED: NITROGLYCERIN SL 0.4 MG TABLET SL PRN (20:41)
[2016-12-18] MEDS ORDERED: CYCLOBENZAPRINE 10 MG TABLET PO PRN (20:41)
[2016-12-18] MEDS ORDERED: CLORAZEPATE 3.75 MG TABLET PO PRN (20:41)
[2016-12-18] MEDS ORDERED: TEMAZEPAM 15 MG CAPSULE PO PRN (20:41)
--- NOTE | 2016-12-18 20:51 | Hospitalist History & Physical ---
Assessment and Plan - Time spent with patient Time spent with patient: Greater than 30 minutes (1) TIA (transient ischemic attack) Status: Acute Assessment and plan: Admit to hospitalist services. Consult Neurology. Telemetry. Neuro checks Q4. Patient reports she is unable to tolerate ASA due to gastritis. Placed on Lovenox and Plavix. Lipid panel in a.m. Continue home medications for hyperlipidemia. MRI brain and US carotid in am. Current Visit: Yes (2) Diabetes mellitus Problem details: Continue current medical treatment regimen. Status: Chronic Assessment and plan: Patient reports that BG is currently controlled with diet. No home medications. Accuchecks and SSI ACHS. A1c in a.m. Current Visit: No Qualifiers: Diabetes mellitus type: type 2 (3) GERD (gastroesophageal reflux disease) Problem details: PPI Status: Chronic Assessment and plan: Protonix 40 mg BID. Current Visit: Yes (4) Hyperlipidemia Problem details: Continue statin, Fenofibrate and fish oil. Status: Chronic Current Visit: Yes (5) Hypertension Status: Chronic Assessment and plan: Continue home medications. Current Visit: Yes Qualifiers: Hypertension type: essential hypertension (6) DVT prophylaxis Status: Acute Assessment and plan: Lovenox 40 mg SQ daily. Current Visit: Yes History of Present Illness Chief complaint: Blurry vision History of present illness: Ms. Roberts is a 61 year old female with a past medical history of CVA, HTN, DM , hypertriglyceridemia, [place], CAD, and anxiety who presented to the ED today with complaints of vision changes. She reports that she turned her head and her vision seemed to be divided and blurry. Additionally, she was unable to figure out how to use the phone to call her daughter. She reports it took her about 5 minutes to be able to dial her daughter's number. She denies any weakness, facial drooping, or speech problems during this time, however she has had some headaches behind her right eye for the last couple of months. All of her symptoms had resolved by the time she arrived in the ED. All labs in the ED were unremarkable and her CT head was negative for any acute process. Hospitalist services were consulted, and the patient will be admitted for further evaluation and treatment. Home medications were reviewed and reconciled. This patient is a full code. Home Medications Medication Instructions Recorded Confirmed Type Nebivolol [Bystolic] 5 mg PO BEDTIME 03/07/15 12/18/16 History Clopidogrel [Plavix] 75 mg PO BEDTIME 05/14/16 12/18/16 History Furosemide Tab [Lasix Tab] 20 mg PO DAILY PRN 05/14/16 12/18/16 History Linaclotide [Linzess] 145 mcg PO AC BREAKFAST 05/14/16 12/18/16 History Sertraline [Zoloft] 50 mg PO BEDTIME 05/14/16 12/18/16 History Clorazepate [Tranxene] 3.75 mg PO TID PRN 06/30/16 12/18/16 History Cyclobenzaprine [Flexeril] 10 mg PO BID PRN 06/30/16 12/18/16 History Pantoprazole Sodium 40 mg PO BIDAC 06/30/16 12/18/16 History Temazepam [Restoril] 15 mg PO BEDTIME PRN 10/04/16 12/18/16 History Valsartan [Diovan] 80 mg PO BID 10/04/16 12/18/16 History Fenofibrate 54 mg PO BEDTIME 10/05/16 12/18/16 History Atorvastatin [Lipitor] 40 mg PO BEDTIME 10/06/16 12/18/16 History Potassium 99 mg PO QAM 10/06/16 12/18/16 History Calcium (Carb)/Vit D 600-400 1 tablet PO BEDTIME 11/25/16 12/18/16 History [Caltrate 600 + D] Nitroglycerin Sl Tab [Nitrostat] 0.4 mg SL Q5M PRN 11/25/16 12/18/16 History Ondansetron HCl [Ondansetron HCl] 8 mg PO Q8H PRN 11/25/16 12/18/16 History Dicyclomine Cap/Tab [Bentyl 10 mg PO BID 12/18/16 12/18/16 History Cap/Tab] [place] 3 Acid Ethyl Esters [Lovaza] 2 gm PO BID 12/18/16 12/18/16 History Allergies Allergy/AdvReac Type Severity Reaction Status Date / Time cimetidine [From Tagamet] Allergy Intermediate Diarrhea Verified 12/18/16 16:09 Medical,Surgical,& Family Hx - Medical History Cardio: History of: Cardiac Dysrhythmia (palpitations), CAD, Hypertension, [place], PVD, Cardiovascular Problems (Angina pectoris) Psychological: History of: Anxiety Disorders, Depression Neurology: History of: Cerebrovascular Accident, TIA (5 years ago) HEENT: History of: Eye Problem (wears glasses), Dental Problems (28 years ago..mouth surgery) Endocrine: History of: Diabetes Mellitus (NIDDM) (diet controlled), Dyslipidemia Respiratory: History of: COPD, Obstructive Sleep Apnea, Pneumonia Gastrointestinal: History of: Diverticulitis/ Diverticulosis, GERD, Pancreatitis , GI Problems (hiatal hernia and umbilical hernia) Musculoskeletal: History of: Degenerative Disk Disease, Herniated Disk (lower back) Hematology: History of: Anemia Reproductive: History of: Endometriosis Other: History of: Anesthesia Reactions (multiple compaints, choking,) - Surgical History Cardiac Surgeries: Sugical HX of: Cardiac Catheterization (4 heart caths), Cardiac Surgery (3 stents placed) HEENT Surgeries: Surgical HX of: Tonsilectomy & Adenoidectomy Abdominal Surgeries: Surgical HX of: Appendectomy, Cholecystectomy, Colonoscopy , EGD Reproductive Surgeries: Surgical HX of;: Hysterectomy Orthopedic Surgeries: Surgical HX of;: Orthopedic Surgery (left shoulder surgery , right shoulder,disc in neck) - Family History Family History: Reports;: Family Cancer (mother-melanoma), Family Diabetes (aunt ), Family Heart Disease (father-bypass, defribrillator), Family Hypertension ( mother), Family Stroke (aunt) - Social History Smoking Status: Former smoker Have you smoked in the last 12 months: No Frequency of Alcohol Use: None Type of Drug Use: None Marital Status: Lives With:: Alone Functional capacity: independent ambulation 12 point system: reviewed and no additional remarkable complaints except as stated - Constitutional Constitutional: Present: headache(s). Absent: fever(s), weakness - EENT Eyes: Present: blurry vision, loss of vision, other (reports "divided vision") Nose, mouth and throat: Present: headache(s), other (tooth abscess). Absent: nasal congestion, sore throat - Cardiovascular Cardiovascular: Present: palpitations (At night only when lying on left side; awaken her from sleep. ). Absent: chest pain at rest, chest pain with activity , dyspnea, edema, orthopnea - Respiratory Respiratory: Absent: cough, dyspnea, wheezing - Gastrointestinal Gastrointestinal: Present: diarrhea (related to recent antibiotic use), heartburn. Absent: abdominal pain, constipation, nausea, vomiting - Genitourinary Genitourinary: Absent: dysuria, flank pain, urinary frequency - Musculoskeletal Musculoskeletal: Absent: arthralgias, joint swelling, muscle weakness, myalgias - Neurological Neurological: Present: confusion. Absent: dizziness, focal weakness, numbness, paresthesias, syncope - Psychiatric Psychiatric: Present: anxiety. Absent: depression - Endocrine Endocrine: Absent: cold intolerance, polydipsia, polyphagia, polyuria - Hematologic/Lymphatic Hematologic/Lymphatic: Absent: easy bleeding, easy bruising Exam - Constitutional Vitals: Period Temp Pulse Resp BP Sys/North Pulse Ox Last 24 Hr 97.5 F-97.5 F 64-78 18-20 113-140/73-91 93-97 Exam: Constitutional System: Afebrile. Awake, alert and oriented x 3. No distress. No tremulousness. Head: Normocephalic, atraumatic. Ears, Nose and Throat System: No pain or tenderness. No epistaxis or discharge Eyes System: Pupils equal, round, and reactive. Extraocular muscles intact. Neck: Supple, without adenopathy, No jugular venous distention. No thyromegaly, neck mass, or prior surgery apparent. Respiratory System: Chest clear to auscultation. Cardiovascular System: Heart with regular rate and rhythm. No murmur. GI System: Abdomen soft, nontender. Normo active bowel sounds present. Musculoskeletal System: Limbs with no pedal edema. Full distal pulses. Normal capillary refill. Neurological System: No discernable sensory deficit. No aphasia Psychiatric System: Conversation is rational Results - Labs CBC & BMP: 12/18/16 17:27 12/18/16 17:27 Lab Results: I have reviewed the past 24 hour labs - Diagnostic Findings Procedure: CT: report reviewed by me (Head) Quality Measures - Stroke Onset of Symptoms Date: 12/18/16 Onset of Symptoms Time: 15:30 Symptom Onset Unknown: Yes
[2016-12-18] MEDS ORDERED: CLOPIDOGREL 75 MG TABLET PO SCH (21:00)
[2016-12-18] MEDS ORDERED: SERTRALINE 50 MG TABLET PO SCH (21:00)
[2016-12-18] MEDS ORDERED: ATORVASTATIN 40 MG TABLET PO SCH (21:00)
[2016-12-18] MEDS ORDERED: ENOXAPARIN 40 MG/0.4 ML SYRINGE SUBCUT SCH (21:00)
[2016-12-18] MEDS ORDERED: FENOFIBRATE 48 MG TABLET PO SCH (21:00)
[2016-12-18] MEDS ORDERED: NEBIVOLOL 5 MG TABLET PO SCH (21:00)
[2016-12-18] MEDS ORDERED: cefTRIAXone 2,000 MG in SODIUM CHLORIDE 0.9% 100 ML IV SCH (22:00)
[2016-12-18] MEDS: INSULIN LISPRO 100 UNIT/ML SUBCUT SCH (22:51)
[2016-12-18] MEDS: CALCIUM (CARBONATE)/VITAMIN D 600 MG-400 UNIT TABLET PO SCH ×2 (22:52→23:01)
[2016-12-18] MEDS: VALSARTAN 80 MG TABLET PO SCH (22:52)
[2016-12-18] MEDS: OMEGA 3 ACID ETHYL ESTERS 1 GM CAPSULE PO SCH (22:53)
[2016-12-18] MEDS: DICYCLOMINE 10 MG CAPSULE PO SCH (22:54)
[2016-12-18] MEDS: PANTOPRAZOLE 40 MG TABLET PO SCH (22:55)
[2016-12-19] MEDS ORDERED: INFLUENZA VIRUS VACCINE 0.5 ML SYRINGE IM ONE (00:42)
[2016-12-19] MEDS ORDERED: PNEUMOCOCCAL VACCINE (23 VALENT) 0.5 ML VIAL IM ONE (00:44)
[2016-12-19 06:23] LABS: Risk Ratio 10.15; VLDL CHOLESTEROL 179.4 MG/DL
[2016-12-19] MEDS ORDERED: LINACLOTIDE 145 MCG CAPSULE PO SCH (07:30)
[2016-12-19] MEDS: VALSARTAN 80 MG TABLET PO SCH (08:59)
[2016-12-19] MEDS: DICYCLOMINE 10 MG CAPSULE PO SCH (08:59)
[2016-12-19] MEDS: INSULIN LISPRO 100 UNIT/ML SUBCUT SCH ×3 (08:59→17:14)
[2016-12-19] MEDS: PANTOPRAZOLE 40 MG TABLET PO SCH (08:59)
[2016-12-19] MEDS: OMEGA 3 ACID ETHYL ESTERS 1 GM CAPSULE PO SCH (09:00)
--- NOTE | 2016-12-19 09:58 | Magnetic Resonance Report ---
MRI brain without contrast Indication: Visual disturbance, Transient ischemic attacks Comparison: 05 October 2005 Technique: Axial sagittal and coronal imaging of the brain is performed without contrast. T1, T2, FLAIR and diffusion weighted sequences are performed. Findings: No evidence of restricted diffusion seen. No evidence of intracranial hemorrhage, mass, mass effect or midline shift is seen. There is moderate diffuse cerebral atrophy. Few areas of faint white matter T2 signal hyperintensity are present in both cerebral hemispheres, periventricular and subcortical in location, likely chronic microvascular changes. Remaining brain parenchyma has normal signal and differentiation. The ventricles and cisterns are appropriate in caliber. Posterior fossa, mid brain and pituitary gland appear within normal limits. No evidence of cranial or skull base abnormality seen. Impression: No evidence of acute infarct or other acute process demonstrated PROCEDURE INTERPRETED AT [facility] DEPARTMENT OF RADIOLOGY Final Report Signed by: Dr. Aden Cuenca
[2016-12-19 12:41] VITALS: BP 109/69
--- NOTE | 2016-12-19 13:19 | Event Note ---
Patient gone for radiological testing.
--- NOTE | 2016-12-19 15:07 | Ultrasound Report ---
Exam: US carotid duplex BI Date: 12/19/2016 4:00 AM Indication: TIA Findings: Grayscale color flow analysis and spectral analysis imaging was performed with image stored and captured. Right Side Flow velocities centimeters per second Common carotid artery: 41.4 Proximal ICA: 31.9 Distal ICA: 50.6 External carotid artery: 278.1 Vertebral artery: 40.9 ICA/CCA ratio: 1.2 Measurements in millimeters Distal ICA: 5.1 Left SIde Flow velocities centimeters per second Common carotid artery: 46.7 Proximal ICA: 58.1 Distal ICA: 83.8 External carotid artery: 51.6 Vertebral artery: 33.6 ICA/CCA ratio: 1.8 Measurements in millimeters Distal ICA: 5.3 Calcified plaque present in the takeoff of the internal carotid arteries and carotid bulb regions left greater than right. Minimal spectral broadening and mild color Mosaic flow present. Intimal hyperplasia the internal carotid arteries present. Impression: 1. 16-49% stenosis bilaterally however moderate plaque is present. If further evaluation is warranted CT angiogram may be beneficial of the head and neck Today studies were performed utilizing indirect NASCET criteria The ultrasound images were stored and captured PROCEDURE INTERPRETED AT [facility] DEPARTMENT OF RADIOLOGY Final Report Signed by: Dr. Akhil Eisenberg
--- NOTE | 2016-12-19 15:35 | Discharge Summary ---
Hospital Course - Hospital Course Hospital Course: Ms. Roberts is a 61 year old female with a past medical history of CVA, HTN, DM , hypertriglyceridemia, [place], CAD, and anxiety who presented to the ED today with complaints of vision changes. She reports that she turned her head and her vision seemed to be divided and blurry. Additionally, she was unable to figure out how to use the phone to call her daughter. She reports it took her about 5 minutes to be able to dial her daughter's number. She denies any weakness, facial drooping, or speech problems during this time, however she has had some headaches behind her right eye for the last couple of months. All of her symptoms had resolved by the time she arrived in the ED. All labs in the ED were unremarkable and her CT head was negative for any acute process. Patient was admitted to telemetry for further observation. She underwent carotid ultrasound without any significant blockages and an MRI of the brain which showed no evidence of acute stroke. This appears to have been a TIA versus complex migraine. She had a garden consultant for neurology but was off the floor at the time of their evaluation and rounding. She is being discharged home to follow-up with her neurologist Dr. Brown as an outpatient. She also underwent treatment for tooth abscess with Rocephin. She is following up with Dr. Florentino, dentist as an outpatient. She has completed outpatient antibiotics and is scheduled for root canal next week. Of note her lipids are grossly abnormal. The patient is on Lipitor and fenofibrate. No further medication adjustments were made. She should continue her home medications without change. - Time spent with patient Time with patient DS: Less than 30 minutes Diagnosis - Discharge Diagnosis (1) Abscessed tooth Status: Acute (2) GERD (gastroesophageal reflux disease) Status: Chronic (3) Hyperlipidemia Status: Chronic (4) Hypertension Status: Chronic (5) TIA (transient ischemic attack) Status: Acute Discharge Plan - Discharge Data Disposition: Disch To Home/Self Care Condition at Discharge: Stable Discharge Diet: advance to your usual diet Activity: resume usual activities as tolerated Hygiene: no restrictions Weight Bearing at Discharge: full weight bearing Driving: no restrictions Contact your physician if you experience:: fever over 101 - Discharge Medications Continue Nebivolol [Bystolic] 5 mg PO BEDTIME Furosemide Tab [Lasix Tab] 20 mg PO DAILY PRN PRN Reason: Edema Clopidogrel [Plavix] 75 mg PO DAILY Linaclotide [Linzess] 145 mcg PO AC BREAKFAST Sertraline [Zoloft] 50 mg PO DAILY Pantoprazole Sodium 40 mg PO BIDAC Cyclobenzaprine [Flexeril] 10 mg PO BID PRN PRN Reason: MUSCLE SPASMS Fenofibrate 54 mg PO BEDTIME Atorvastatin [Lipitor] 40 mg PO BEDTIME Ondansetron HCl 8 mg PO Q8H PRN PRN Reason: Nausea/Vomiting Nitroglycerin Sl Tab [Nitrostat] 0.4 mg SL Q5M PRN PRN Reason: Chest Pain Calcium (Carb)/Vit D 600-400 [Caltrate 600 + D] 1 tablet PO BEDTIME Dicyclomine Cap/Tab [Bentyl Cap/Tab] 10 mg PO BID PRN PRN Reason: Abdominal Pain [place] 3 Acid Ethyl Esters [Lovaza] 2 gm PO BID HydrOXYzine PAMOATE CAP [Vistaril Cap] 25 mg PO BID PRN PRN Reason: Itching Tramadol HCl [Tramadol Tab] 50 mg PO BID PRN PRN Reason: arthritis HYDROcodone/ACETAMIN 5-325 [[place] 5-325] 0.5 tablet PO Q6H Clorazepate [Tranxene] 3.75 mg PO TID PRN PRN Reason: Anxiety Temazepam [Restoril] 15 mg PO BEDTIME PRN PRN Reason: Sleep Valsartan [Diovan] 80 mg PO BID Potassium 99 mg PO QAM Ergocalciferol [Drisdol] 50,000 unit PO Q7DAY - Follow Up or Referral Follow Up: Aurelio Brown MD [Physician] - - Forms/Instructions Exam - Constitutional Vitals: Period Temp Pulse Resp BP Sys/North Pulse Ox Last 24 Hr 97.3 F-98.5 F 64-80 18-20 109-153/59-91 92-100 Discharge Results Labs on day of discharge: Labs from last 24 hours 12/19/16 12/19/16 12/19/16 11:52 08:28 05:19 WBC RBC Hgb Hct MCV MCH MCHC RDW Plt Count MPV Neut % (Auto) Lymph % (Auto) [place] % (Auto) Eos % (Auto) Baso % (Auto) Neut # (Auto) Lymph # (Auto) [place] # (Auto) Eos # (Auto) Baso # (Auto) Immature Gran % Nucleated RBC % Immature Gran # Nucleated RBCs # Immature Plt Fraction INR PT Patient/Control Mix Circ Anticoag PTT Sodium Potassium Chloride Carbon Dioxide Anion Gap BUN Creatinine GFR Calculation BUN/Creatinine Ratio Glucose POC Glucose 130 H 139 H Hemoglobin A1c 6.3 Calculated Osmolality Calcium Magnesium Triglycerides Cholesterol LDL Cholesterol VLDL Cholesterol HDL Cholesterol Heart Disease Risk Ratio Urine Color Urine Appearance Urine pH Ur Specific [place] Urine Protein Urine Glucose (UA) Urine Ketones Urine Blood Urine Nitrate Urine Bilirubin Urine Urobilinogen Urine Leukocytes Urine RBC Urine WBC Ur Squamous Epith Cells Ur Culture Indicated? Urine Opiates Screen Ur Barbiturates Screen Ur Phencyclidine Scrn U Amphetamine/Methamph U Benzodiazepines Scrn U Cocaine Metab Screen U Cannabinoids Screen 12/19/16 12/18/16 12/18/16 05:19 22:15 17:45 WBC RBC Hgb Hct MCV MCH MCHC RDW Plt Count MPV Neut % (Auto) Lymph % (Auto) [place] % (Auto) Eos % (Auto) Baso % (Auto) Neut # (Auto) Lymph # (Auto) [place] # (Auto) Eos # (Auto) Baso # (Auto) Immature Gran % Nucleated RBC % Immature Gran # Nucleated RBCs # Immature Plt Fraction INR PT Patient/Control Mix Circ Anticoag PTT Sodium Potassium Chloride Carbon Dioxide Anion Gap BUN Creatinine GFR Calculation BUN/Creatinine Ratio Glucose POC Glucose 167 H Hemoglobin A1c Calculated Osmolality Calcium Magnesium Triglycerides 897 H Cholesterol 274 H LDL Cholesterol 125.0 VLDL Cholesterol 179.4 HDL Cholesterol 27 L Heart Disease Risk Ratio 10.15 Urine Color Urine Appearance Urine pH Ur Specific [place] Urine Protein Urine Glucose (UA) Urine Ketones Urine Blood Urine Nitrate Urine Bilirubin Urine Urobilinogen Urine Leukocytes Urine RBC Urine WBC Ur Squamous Epith Cells Ur Culture Indicated? Urine Opiates Screen Negative Ur Barbiturates Screen Negative Ur Phencyclidine Scrn Negative U Amphetamine/Methamph Negative U Benzodiazepines Scrn Positive H U Cocaine Metab Screen Negative U Cannabinoids Screen Negative 12/18/16 12/18/16 12/18/16 17:27 17:27 17:27 WBC 8.3 RBC 4.50 Hgb 14.3 Hct 39.3 MCV 87.3 MCH 32 MCHC 36.4 H RDW 12.4 Plt Count 229 MPV 9.7 Neut % (Auto) 49.2 Lymph % (Auto) 30.8 [place] % (Auto) 7.9 Eos % (Auto) 9.6 Baso % (Auto) 1.2 H Neut # (Auto) 4.1 Lymph # (Auto) 2.6 [place]bert # (Auto) 0.7 Eos # (Auto) 0.8 Baso # (Auto) 0.1 Immature Gran % 1.3 Nucleated RBC % 0.0 Immature Gran # 0.11 Nucleated RBCs # 0.00 Immature Plt Fraction 0.0 INR 1.0 PT Patient/Control Mix 10.8 Circ Anticoag PTT 27.4 Sodium 138 Potassium 4.0 Chloride 104 Carbon Dioxide 26 Anion Gap 12.0 BUN 11 Creatinine 0.70 GFR Calculation 103 BUN/Creatinine Ratio 15.00 Glucose 92 POC Glucose Hemoglobin A1c Calculated Osmolality 273.7 Calcium 9.9 Magnesium 2.2 Triglycerides Cholesterol LDL Cholesterol VLDL Cholesterol HDL Cholesterol Heart Disease Risk Ratio Urine Color Urine Appearance Urine pH Ur Specific [place] Urine Protein Urine Glucose (UA) Urine Ketones Urine Blood Urine Nitrate Urine Bilirubin Urine Urobilinogen Urine Leukocytes Urine RBC Urine WBC Ur Squamous Epith Cells Ur Culture Indicated? Urine Opiates Screen Ur Barbiturates Screen Ur Phencyclidine Scrn U Amphetamine/Methamph U Benzodiazepines Scrn U Cocaine Metab Screen U Cannabinoids Screen 12/18/16 17:01 WBC RBC Hgb Hct MCV MCH MCHC RDW Plt Count MPV Neut % (Auto) Lymph % (Auto) [place] % (Auto) Eos % (Auto) Baso % (Auto) Neut # (Auto) Lymph # (Auto) [place] # (Auto) Eos # (Auto) Baso # (Auto) Immature Gran % Nucleated RBC % Immature Gran # Nucleated RBCs # Immature Plt Fraction INR PT Patient/Control Mix Circ Anticoag PTT Sodium Potassium Chloride Carbon Dioxide Anion Gap BUN Creatinine GFR Calculation BUN/Creatinine Ratio Glucose POC Glucose Hemoglobin A1c Calculated Osmolality Calcium Magnesium Triglycerides Cholesterol LDL Cholesterol VLDL Cholesterol HDL Cholesterol Heart Disease Risk Ratio Urine Color Yellow Urine Appearance Clear Urine pH 7.0 Ur Specific [place] 1.002 Urine Protein Negative Urine Glucose (UA) Negative Urine Ketones Negative Urine Blood Negative Urine Nitrate Negative Urine Bilirubin Negative Urine Urobilinogen < 2.0 H Urine Leukocytes Negative Urine RBC <1 Urine WBC <1 Ur Squamous Epith Cells Occasional Ur Culture Indicated? Not indicated Urine Opiates Screen Ur Barbiturates Screen Ur Phencyclidine Scrn U Amphetamine/Methamph U Benzodiazepines Scrn U Cocaine Metab Screen U Cannabinoids Screen DS: Provider Date of admission: 12/18/16 20:37 Primary care physician: . No PCP Attending physician on admission: Jose Rausch MD Consults: 12/18/16 20:37 Consult to Physician [CONS] Routine Comment: TIA; in a.m. Consulting Provider: Aurelio Brown Person Notified: DR. BROWN Date Notified: 12/19/16 Time Notified: 08:13 12/19/16 00:42 Consult to Pastoral Services [CONS] Routine Comment: Pastoral Screen: Request Segment Producer Visit Pastoral Screen Source of Request: Patient Discharging clinician: Kimani Toro MD Expected date of discharge: 12/19/16
== END 2016-12-19 17:47 | disposition home or self-care (01) ==
LOC: N.EDINP 15:51 → N.ED 15:51 → SUATTDRO 20:37 → N.TELEN 21:24
PROVIDERS: ADMIT Internal Medicine; ATTEND Family Medicine

== ENCOUNTER 2017-02-06 16:29 | Inpatient (IN) ==
[2017-02-06] MEDS ORDERED: ONDANSETRON 4 MG/2 ML VIAL IV STA (17:14)
[2017-02-06] MEDS ORDERED: HYDROmorphone 2 MG/1 ML VIAL IV STA (17:14)
[2017-02-06] MEDS ORDERED: SODIUM CHLORIDE 0.9% 1,000 ML IV STA (17:14)
[2017-02-06 17:22] LABS: Basophils # 0.1 10*3/uL (0.0-0.2); Basophils % 0.6 % (0.0-0.8); Eosinophils # 0.2 10*3/uL (0.0-0.87); Eosinophils % 1.5 % (0.00-10.9); Hematocrit 36.8 VOL% (35.7-47.0); Immature Granulocytes % 0.5 %; Immature Granulocytes Absolute 0.06 #; Lymphocytes # 2.2 10*3/uL (1.4-4.0); Mean Corpuscular HGB Conc 35.3 GM/DL (32-36); Mean Corpuscular Hemoglobin 32 PG (27-34); Mean Platelet Volume 10.2 FL (9.6-12.0); Monocytes # 1.2 10*3/uL (0.11-0.8); Neutrophils # 8.6 10*3/uL (1.4-7.4); Neutrophils % 69.4 % (38.7-73.9); Platelet Count 246 T/CUMM (130-400); Red Blood Count 4.09 MC/CUMM (3.8-5.5); Red Cell Distribution Width 12.4 % (9.3-17.3); White Blood Count 12.4 T/CUMM (4-12)
[2017-02-06] MEDS ORDERED: ONDANSETRON 4 MG/2 ML VIAL ONE (17:28)
[2017-02-06] MEDS ORDERED: HYDROmorphone 2 MG/1 ML VIAL ONE (17:28)
[2017-02-06 17:41] LABS: Albumin 3.6 G/DL (3.4-5.0); Bilirubin,Total 0.4 MG/DL (0.2-1.0); Calcium 9.3 MG/DL (8.5-10.1); Osmolality,Calculated 270.8 MOS/KG (273-304); Potassium 4.6 MMOL/L (3.5-5.1); Total Protein 7.3 G/DL (6.4-8.3)
[2017-02-06 18:02] LABS: Apearance,Urine CLEAR (Clear); Bilirubin,Urine Negative (Negative); Blood, Urine Negative (Negative); Glucose,Urine (UA) Negative (Negative); Ketones,Urine Negative (Negative); Nitrite,Urine Negative (Negative); Protein,Urine Negative; RBC,Urine <1 /HPF (0-4); Squamous Epithelial Cell,Urine Occasional /HPF (0-10); Urine Color Amber (Yellow); Urine Specific Gravity 1.005 (1.001-1.035); Urine Urobilinogen < 2.0 EU/DL (0.2-1.0); WBC,Urine <1 /HPF (0-6)
[2017-02-06] MEDS ORDERED: CEFEPIME 2,000 MG in SODIUM CHLORIDE 0.9% 100 ML IV STA (19:51)
[2017-02-06] MEDS ORDERED: metroNIDAZOLE INJ 500 MG in PREMIX 1 EACH IV STA (19:52)
[2017-02-06] MEDS ORDERED: metroNIDAZOLE 500 MG/100 ML PREMIX IV ONE (19:55)
[2017-02-06] MEDS ORDERED: ZALEPLON 5 MG CAPSULE PO PRN (20:30)
[2017-02-06] MEDS ORDERED: FUROSEMIDE 20 MG TABLET PO PRN (20:34)
[2017-02-06] MEDS ORDERED: traMADol 50 MG TABLET PO PRN (20:34)
[2017-02-06] MEDS ORDERED: CLORAZEPATE 3.75 MG TABLET PO PRN (20:34)
[2017-02-06] MEDS ORDERED: [UNRECOGNIZED DRUG - OTHER] PO SCH (21:41)
[2017-02-06] MEDS ORDERED: ASCORBATE CALCIUM PO SCH (21:41)
[2017-02-06] MEDS ORDERED: BIOFLAVONOID PO SCH (21:41)
[2017-02-06] MEDS: SODIUM CHLORIDE 0.9% 1,000 ML IV SCH (22:33)
[2017-02-06] MEDS: HYDROmorphone 2 MG/1 ML VIAL IV PRN (22:34)
[2017-02-06] MEDS: LEVOFLOXACIN INJ 500 MG in PREMIX 1 EACH IV SCH (22:34)
[2017-02-06] MEDS: HydrOXYzine PAMOATE 25 MG CAPSULE PO SCH (22:43)
[2017-02-06] MEDS: VALSARTAN 80 MG TABLET PO SCH (22:45)
[2017-02-06] MEDS: CLOPIDOGREL 75 MG TABLET PO SCH (22:45)
[2017-02-06] MEDS: NEBIVOLOL 5 MG TABLET PO SCH (22:47)
[2017-02-06] MEDS: CALCIUM (CARBONATE)/VITAMIN D 600 MG-400 UNIT TABLET PO SCH (22:48)
[2017-02-06] MEDS: ATORVASTATIN 80 MG TABLET PO SCH (22:49)
[2017-02-06] MEDS: OMEGA 3 ACID ETHYL ESTERS 1 GM CAPSULE PO SCH (22:50)
[2017-02-06] MEDS: ENOXAPARIN 40 MG/0.4 ML SYRINGE SUBCUT SCH (22:51)
[2017-02-07] MEDS: ONDANSETRON 4 MG/2 ML VIAL IV PRN (00:16)
[2017-02-07] MEDS: metroNIDAZOLE INJ 500 MG in PREMIX 1 EACH IV SCH ×4 (02:05→22:36)
[2017-02-07 06:21] LABS: Basophils # 0.1 10*3/uL (0.0-0.2); Basophils % 0.6 % (0.0-0.8); Eosinophils # 0.1 10*3/uL (0.0-0.87); Eosinophils % 1.1 % (0.00-10.9); Hematocrit 35.7 VOL% (35.7-47.0); Hemoglobin 12.3 GM/DL (12.0-16.0); Immature Granulocytes % 0.4 %; Immature Granulocytes Absolute 0.05 #; Lymphocytes % 15.9 % (21.3-54.2); Mean Corpuscular HGB Conc 34.5 GM/DL (32-36); Mean Corpuscular Hemoglobin 31 PG (27-34); Mean Corpuscular Volume 91.1 FL (87-102); Mean Platelet Volume 10.5 FL (9.6-12.0); Monocytes % 8.2 % (1.7-12.7); Neutrophils # 9.1 10*3/uL (1.4-7.4); Neutrophils % 73.8 % (38.7-73.9); Platelet Count 247 T/CUMM (130-400); Red Blood Count 3.92 MC/CUMM (3.8-5.5); Red Cell Distribution Width 12.6 % (9.3-17.3); White Blood Count 12.3 T/CUMM (4-12)
[2017-02-07 07:01] LABS: Albumin 3.2 G/DL (3.4-5.0); Bilirubin,Total 0.6 MG/DL (0.2-1.0); Calcium 8.7 MG/DL (8.5-10.1); Osmolality,Calculated 274.8 MOS/KG (273-304)
[2017-02-07] MEDS: HYDROmorphone 2 MG/1 ML VIAL IV PRN ×2 (08:12→20:34)
[2017-02-07] MEDS ORDERED: NON-FORMULARY MEDICATION (Bifidobacterium Infantis [Align] 4 MG) PO SCH (09:00)
[2017-02-07] MEDS: LINACLOTIDE 145 MCG CAPSULE PO SCH (09:23)
[2017-02-07] MEDS: PANTOPRAZOLE 40 MG TABLET PO SCH ×2 (09:23→17:09)
[2017-02-07] MEDS: HydrOXYzine PAMOATE 25 MG CAPSULE PO SCH ×3 (09:24→21:03)
[2017-02-07] MEDS: SERTRALINE 50 MG TABLET PO SCH (09:24)
[2017-02-07] MEDS: OMEGA 3 ACID ETHYL ESTERS 1 GM CAPSULE PO SCH ×2 (09:25→21:01)
[2017-02-07] MEDS: NEBIVOLOL 5 MG TABLET PO SCH ×2 (09:26→21:02)
[2017-02-07] MEDS: VALSARTAN 80 MG TABLET PO SCH ×2 (09:27→21:03)
[2017-02-07] MEDS ORDERED: diphenhydrAMINE CAP 25 MG CAPSULE PO PRN (09:45)
[2017-02-07] MEDS ORDERED: ACETAMINOPHEN 500 MG TABLET PO PRN (09:45)
[2017-02-07] MEDS ORDERED: ZOLPIDEM 5 MG TABLET PO PRN (09:46)
[2017-02-07] MEDS ORDERED: DOCUSATE SODIUM 100 MG CAPSULE PO PRN (10:06)
[2017-02-07] MEDS ORDERED: POLYETHYLENE GLYCOL POWDER 17 GM PACK PO PRN (10:07)
[2017-02-07] MEDS: SODIUM CHLORIDE 0.9% 1,000 ML IV SCH (13:23)
[2017-02-07] MEDS: FLUCONAZOLE 100 MG TABLET PO SCH (15:33)
[2017-02-07] MEDS: LEVOFLOXACIN INJ 500 MG in PREMIX 1 EACH IV SCH (21:00)
[2017-02-07] MEDS: CALCIUM (CARBONATE)/VITAMIN D 600 MG-400 UNIT TABLET PO SCH (21:01)
[2017-02-07] MEDS: CLOPIDOGREL 75 MG TABLET PO SCH (21:02)
[2017-02-07] MEDS: ENOXAPARIN 40 MG/0.4 ML SYRINGE SUBCUT SCH (21:03)
[2017-02-07] MEDS: ATORVASTATIN 80 MG TABLET PO SCH (21:03)
[2017-02-08] MEDS: metroNIDAZOLE INJ 500 MG in PREMIX 1 EACH IV SCH ×4 (03:05→21:23)
[2017-02-08] MEDS: HYDROmorphone 2 MG/1 ML VIAL IV PRN ×2 (06:01→13:36)
[2017-02-08] MEDS: VALSARTAN 80 MG TABLET PO SCH ×2 (08:10→20:43)
[2017-02-08] MEDS: SERTRALINE 50 MG TABLET PO SCH (08:10)
[2017-02-08] MEDS: FLUCONAZOLE 100 MG TABLET PO SCH (08:10)
[2017-02-08] MEDS: OMEGA 3 ACID ETHYL ESTERS 1 GM CAPSULE PO SCH ×2 (08:10→20:43)
[2017-02-08] MEDS: HydrOXYzine PAMOATE 25 MG CAPSULE PO SCH ×3 (08:10→20:43)
[2017-02-08] MEDS: LINACLOTIDE 145 MCG CAPSULE PO SCH (08:10)
[2017-02-08] MEDS: PANTOPRAZOLE 40 MG TABLET PO SCH ×2 (08:11→16:51)
[2017-02-08] MEDS: NEBIVOLOL 5 MG TABLET PO SCH ×2 (08:11→20:44)
[2017-02-08] MEDS: SODIUM CHLORIDE 0.9% 1,000 ML IV SCH ×2 (16:51→20:45)
[2017-02-08] MEDS ORDERED: HYDROmorphone 2 MG/1 ML VIAL IM PRN (19:40)
[2017-02-08] MEDS: CLOPIDOGREL 75 MG TABLET PO SCH (20:43)
[2017-02-08] MEDS: CALCIUM (CARBONATE)/VITAMIN D 600 MG-400 UNIT TABLET PO SCH (20:43)
[2017-02-08] MEDS: LEVOFLOXACIN INJ 500 MG in PREMIX 1 EACH IV SCH (20:44)
[2017-02-08] MEDS: ATORVASTATIN 80 MG TABLET PO SCH (20:44)
[2017-02-08] MEDS: ENOXAPARIN 40 MG/0.4 ML SYRINGE SUBCUT SCH (20:45)
[2017-02-08] MEDS: TEMAZEPAM 15 MG CAPSULE PO PRN (22:53)
[2017-02-09] MEDS: metroNIDAZOLE INJ 500 MG in PREMIX 1 EACH IV SCH ×4 (02:04→21:53)
[2017-02-09] MEDS: LINACLOTIDE 145 MCG CAPSULE PO SCH (08:59)
[2017-02-09] MEDS: PANTOPRAZOLE 40 MG TABLET PO SCH ×2 (09:00→16:07)
[2017-02-09] MEDS: NEBIVOLOL 5 MG TABLET PO SCH ×2 (09:02→20:17)
[2017-02-09] MEDS: FLUCONAZOLE 100 MG TABLET PO SCH (09:03)
[2017-02-09] MEDS: VALSARTAN 80 MG TABLET PO SCH ×2 (09:03→20:15)
[2017-02-09] MEDS: OMEGA 3 ACID ETHYL ESTERS 1 GM CAPSULE PO SCH ×2 (09:05→20:15)
[2017-02-09] MEDS: SERTRALINE 50 MG TABLET PO SCH (09:06)
[2017-02-09] MEDS: HydrOXYzine PAMOATE 25 MG CAPSULE PO SCH ×3 (09:06→20:16)
[2017-02-09] MEDS: ONDANSETRON 4 MG/2 ML VIAL IV PRN (11:19)
[2017-02-09] MEDS: SODIUM CHLORIDE 0.9% 1,000 ML IV SCH (14:21)
[2017-02-09] MEDS: LEVOFLOXACIN INJ 500 MG in PREMIX 1 EACH IV SCH (20:13)
[2017-02-09] MEDS: CALCIUM (CARBONATE)/VITAMIN D 600 MG-400 UNIT TABLET PO SCH (20:16)
[2017-02-09] MEDS: ATORVASTATIN 80 MG TABLET PO SCH (20:16)
[2017-02-09] MEDS: ENOXAPARIN 40 MG/0.4 ML SYRINGE SUBCUT SCH (20:18)
[2017-02-09] MEDS: CLOPIDOGREL 75 MG TABLET PO SCH (20:28)
[2017-02-09] MEDS: TEMAZEPAM 15 MG CAPSULE PO PRN (23:02)
[2017-02-10] MEDS: metroNIDAZOLE INJ 500 MG in PREMIX 1 EACH IV SCH ×2 (03:22→08:35)
[2017-02-10 05:59] LABS: Basophils # 0.1 10*3/uL (0.0-0.2); Eosinophils # 0.2 10*3/uL (0.0-0.87); Hematocrit 29.2 VOL% (35.7-47.0); Hemoglobin 10.4 GM/DL (12.0-16.0); Immature Granulocytes % 0.8 %; Immature Granulocytes Absolute 0.04 #; Lymphocytes # 1.8 10*3/uL (1.4-4.0); Mean Corpuscular HGB Conc 35.6 GM/DL (32-36); Mean Corpuscular Hemoglobin 32 PG (27-34); Mean Corpuscular Volume 88.5 FL (87-102); Mean Platelet Volume 10.1 FL (9.6-12.0); Monocytes # 0.4 10*3/uL (0.11-0.8); Monocytes % 7.8 % (1.7-12.7); Neutrophils # 2.7 10*3/uL (1.4-7.4); Neutrophils % 51.4 % (38.7-73.9); Platelet Count 224 T/CUMM (130-400); Red Cell Distribution Width 11.8 % (9.3-17.3); White Blood Count 5.3 T/CUMM (4-12)
[2017-02-10 06:40] LABS: Calcium 7.9 MG/DL (8.5-10.1); Osmolality,Calculated 279.1 MOS/KG (273-304); Potassium 3.6 MMOL/L (3.5-5.1)
[2017-02-10] MEDS: LINACLOTIDE 145 MCG CAPSULE PO SCH (08:33)
[2017-02-10] MEDS: NEBIVOLOL 5 MG TABLET PO SCH (08:34)
[2017-02-10] MEDS: PANTOPRAZOLE 40 MG TABLET PO SCH (08:34)
[2017-02-10] MEDS: VALSARTAN 80 MG TABLET PO SCH (08:35)
[2017-02-10] MEDS: FLUCONAZOLE 100 MG TABLET PO SCH (08:35)
[2017-02-10] MEDS: OMEGA 3 ACID ETHYL ESTERS 1 GM CAPSULE PO SCH (08:37)
[2017-02-10] MEDS: SERTRALINE 50 MG TABLET PO SCH (08:38)
[2017-02-10] MEDS: HydrOXYzine PAMOATE 25 MG CAPSULE PO SCH (08:38)
[2017-02-10 11:58] VITALS: BP 151/87
[2017-02-10] MEDS: SODIUM CHLORIDE 0.9% 1,000 ML IV SCH ×2 (14:33)
[2017-02-10] MEDS ORDERED: metroNIDAZOLE 500 MG TABLET PO SCH (15:00)
[2017-02-10] MEDS ORDERED: ERGOCALCIFEROL 50,000 UNIT CAPSULE PO SCH (20:34)
[2017-02-11] MEDS ORDERED: LEVOFLOXACIN 500 MG TABLET PO SCH (09:00)
== END 2017-02-10 14:34 | disposition home or self-care (01) | DRG 392 ==
LOC: N.ED 16:29 → N.EDINP 20:30 → N.2E 21:14
PROVIDERS: ADMIT Hospitalist; ATTEND Hospitalist